=== PATIENT | male | born 1940 | race Caucasian/White ===

== ENCOUNTER → 2016-04-28 | Outpatient (RCR) ==
--- NOTE | 2016-04-28 11:08 | RS.OTEVAL ---
Subjective Date of Note: 04/28/16 Visit #: 1 Date of Evaluation: 04/28/16 Date of Onset/Injury/Change in Status: 03/06/16 Surgery Performed?: Yes Date of Procedure: 04/14/16 Treatment Diagnosis: bicep Tenodesis Treatment Side (optional): Left *Precautions: No AROM of LEft elbow Prior Level of Function.....Patient was independent with: ADL's, Self Care, Work /Vocation, Caregiving, Ambulation/Mobility, Community Integration/Access History of Condition/Mechanism of Injury: Pt reported he fell over the dog barrier and went to catch himself when his LUE went behind him and it popped really loud and he had to lay in the floor until his got home. Level of Function: Pt requires assistance with putting on his shirt, tying his shoes Functional Limitations: Sleep, Self Care, ADL's, Reaching, Pushing, Pulling, Lifting, Carrying, Community Access/Integration Current Complaints/Gains: Pt has pain and very limited at this time. Pt requires assist with all ADLS. Pt is not to move the LUE Elbow actively. Medical History Medical History Comments:: Left bicep tenodesis, Tear of subscapularis muscles Surgical History Comments:: Left bicep tenodesis Smoking Status: Former smoker Patient's Goals: To get where he can use his LUE again. Pain Assessment - Pain Description Pain Description: Tightness, Sharp, Aching Pain Location: Left pectoralis muscle, subscapularis muscle and posterior scapula Pain Description: aches, sharp Current Pain Intensity: 7 Worst Pain Intensity: 9 Functional Outcome Measures UE Functional Index: 37 - G Codes & Severity Modifier G Codes: Carrying , Moving and handling objects. current CK. Goal CH Source of G Code score: Carrying moving and handling objects Observation - Observation Posture: Normal Handedness: Right Shoulder ROM: Right WFL's Shoulder Muscle Strength: Right WFL's - Left Shoulder ROM Left Shoulder Flexion: 90 (PROM) Left Shoulder Abduction: 40 (PROM) Left Shoulder Internal Rotation: 35 (PROM with pain) Left Shoulder External Rotation: 35 (PROM with pain) Left Shoulder ROM Limitations: Soft Tissue Tightness, Muscle Weakness, Pain Elbow ROM: Right WFL's Elbow Muscle Strength: Right WFL's - Right Elbow Strength Right Elbow Extension: 4+ Good + Right Elbow Flexion: 4+ Good + Right Forearm Pronation: 4+ Good + Right Forearm Supination: 4+ Good + Wrist ROM: Right WFL's Wrist Muscle Strength: Right WFL's Sensation Right Upper Extremity: Intact/Normal Left Upper Extremity: Intact/Normal Interventions - Exercise/Activities Exercise/Activities/Manual Therapy: PROM of JOSHE shoulder in shoulder flexion, Internal Rotation, External Rotation, ABDuction, ELBow flexion/extension HOME EXERCISE PROGRAM: Ice - Charges Total Direct Minutes: 45 Total Treatment Time: 15 Procedures billed for this date of service:: Dc moderate Assessment Assessment: Pt requires assist with all ADLS. Patient Education: Education of diagnosis, Home Exercise Program, Education of Plan of Care Rehab Potential: Good Short Term Goals Goal #1: Pt to follow the protocol for Bicep tenodesis. Goal to be met by: 05/12/16 Goal #2: Pt to be independent with Home exercise program. Goal to be met by: 05/12/16 Goal #3: Pt pain to decrease to 4/10 Goal to be met by: 05/12/16 Goal #4: Pt to increase to full PROM in week 1-4 Goal to be met by: 05/12/16 Prison Goals Goal #1: Pt to be independent with HEP. Goal to be met by: 07/21/16 Goal #2: Pt to have full AROM at 8th week. Goal to be met by: 07/21/16 Goal #3: Pt pain to decrease to 0-1/10 Goal to be met by: 07/21/16 Goal #4: Pt to increase strength to 4+/5 Goal to be met by: 07/21/16 Plan - Treatment to be provided Procedures: Therapeutic Exercises, Therapeutic Activity, Neuromuscular Rehab, Manual Therapy, Patient Education Modalities: Ultrasound/Phonophoresis, Class IV Laser, Cryotherapy, Hot Packs - Treatment Plan Frequency: 3 X week Duration: 12 weeks ORDER # VISITS AND/OR THROUGH DATE: July 21, 2016
== END ==
PROVIDERS: ATTEND Orthopaedic Surgery
DX: S46.012D Strain of muscle(s) and tendon(s) of the rotator cuff of left shoulder, subsequent encounter (principal)

== ENCOUNTER → 2016-05-29 | Outpatient (RCR) ==
--- NOTE | 2016-04-29 13:21 | RS.OTDNOTE ---
Subjective Date of Note: 04/29/16 Visit #: 2 Date of Evaluation: 04/28/16 Date of Onset/Injury/Change in Status: 03/06/16 Surgery Performed?: Yes Treatment Diagnosis: bicep Tenodesis Treatment Side (optional): Left *Precautions: No AROM of LEft elbow Prior Level of Function.....Patient was independent with: ADL's, Self Care, Work /Vocation, Caregiving, Ambulation/Mobility, Community Integration/Access History of Condition/Mechanism of Injury: Pt reported he fell over the dog barrier and went to catch himself when his LUE went behind him and it popped really loud and he had to lay in the floor until his got home. Level of Function: Pt requires assistance with putting on his shirt, tying his shoes Functional Limitations: Sleep, Self Care, ADL's, Reaching, Pushing, Pulling, Lifting, Carrying, Community Access/Integration Current Complaints/Gains: Pt states hx of fall and states he is fearful of injuring UE or "pulling something out." States good compliance with donning brace and that he has trouble not utilizing his (L) hand at times "but the sling stops me". Pain Assessment - Pain Description Pain Description: Tightness, Radiating, Sharp, Throbbing, Aching Pain Location: Left pectoralis muscle, subscapularis muscle and posterior scapula Pain Description: aches, sharp Current Pain Intensity: 4 Worst Pain Intensity: 8+ Modalities - Treatment Modality: Ultrasound Parameters/Method Applied: 1.5w/cm2 x 7 mins each to elbow and to bicep tendon area. Patient Position: Supine - Hot Pack/Cryotherapy Treatment: Hot Pack (HP applied to shoulder and elbow prior to US/PROM x 15 mins with CP applied x 10+ mins following PROM), Cryotherapy Interventions - Exercise/Activities Exercise/Activities/Manual Therapy: PROM of LUE shoulder in shoulder flexion/ scaption, IR/ER, ABDuction, and elbow flexion/extension. PROM elbow extension to 0* HOME EXERCISE PROGRAM: Ice - Other Treatment/Services Treatment Details: Pt guarded during PROM, hard to relax. - Objective Findings Objective Findings:: Manual therapy/trigger point therapy performed - Charges Total Direct Minutes: 41 Total Treatment Time: 56 Procedures billed for this date of service:: HP/CP EX US Assessment Patient Education: Education of diagnosis, Body/Joint mechanics, Home Exercise Program, Home Safety, Activity Modification, Education of Plan of Care Patient demonstrates compliance with HEP?: Yes Short Term Goals Goal #1: Pt to follow the protocol for Bicep tenodesis. Goal to be met by: 05/12/16 Progress towards goal: Progressing Goal #2: Pt to be independent with Home exercise program. Goal to be met by: 05/12/16 Progress towards goal: Progressing Goal #3: Pt pain to decrease to 4/10 Goal to be met by: 05/12/16 Progress towards goal: Progressing Goal #4: Pt to increase to full PROM in week 1-4 Goal to be met by: 05/12/16 Progress towards goal: Progressing Senior Care Goals Goal #1: Pt to be independent with HEP. Goal to be met by: 07/21/16 Progress towards goal: Progressing Goal #2: Pt to have full AROM at 8th week. Goal to be met by: 07/21/16 Progress towards goal: No Change Goal #3: Pt pain to decrease to 0-1/10 Goal to be met by: 07/21/16 Progress towards goal: Progressing Goal #4: Pt to increase strength to 4+/5 Goal to be met by: 07/21/16 Progress towards goal: No Change (PROM only till May 19) Plan PLAN OF CARE EXPIRES ON:: 07/21/16 ORDER # VISITS AND/OR THROUGH DATE: July 21, 2016 PLAN: Continue Plan of Care Frequency: 3 X week Duration: 12 weeks
--- NOTE | 2016-04-30 10:17 | RS.OTDNOTE ---
Subjective Date of Note: 04/30/16 Visit #: 3 Date of Evaluation: 04/28/16 Date of Onset/Injury/Change in Status: 03/06/16 Surgery Performed?: Yes Treatment Diagnosis: bicep Tenodesis Treatment Side (optional): Left *Precautions: No AROM of LEft elbow Prior Level of Function.....Patient was independent with: ADL's, Self Care, Work /Vocation, Caregiving, Ambulation/Mobility, Community Integration/Access History of Condition/Mechanism of Injury: Pt reported he fell over the dog barrier and went to catch himself when his LUE went behind him and it popped really loud and he had to lay in the floor until his got home. Level of Function: Pt requires assistance with putting on his shirt, tying his shoes Functional Limitations: Sleep, Self Care, ADL's, Reaching, Pushing, Pulling, Lifting, Carrying, Community Access/Integration Current Complaints/Gains: Pt reports he did not apply ice pack again yesterday as instructed but that he did soak in a warm bathtub to decrease c/o pain. States he only took one wk off of work and realizes now that he should have taken more time off. Pain Assessment - Pain Description Pain Description: Tightness, Radiating, Sharp, Throbbing, Aching Pain Location: Left pectoralis muscle, subscapularis muscle and posterior scapula Pain Description: aches, sharp Modalities - Treatment Modality: Ultrasound Parameters/Method Applied: 1.5w/cm2 x 7 mins along bicep tendon and x 7 mins anterior/posterior shoulder. Patient Position: Sitting - Hot Pack/Cryotherapy Treatment: Hot Pack, Cryotherapy (HP x 15+ mins prior to PROM with CP applied x 10+ mins following with pt instructed to apply CP x 10-15 2-3 times daily for pain axel) Interventions - Exercise/Activities Exercise/Activities/Manual Therapy: PROM of LUE shoulder with pt in supine and sidelying position shoulder flexion/scaption, IR/ER, ABDuction, and elbow flexion/extension (GE/AG). PROM elbow extension to 0* HOME EXERCISE PROGRAM: Ice and no AROM including hand - Objective Findings Objective Findings:: Manual therapy/trigger point therapy performed - Charges Total Direct Minutes: 40 Total Treatment Time: 65 Procedures billed for this date of service:: HP/CP US EX Assessment Patient Education: Education of diagnosis, Body/Joint mechanics, Home Exercise Program, Home Safety, Activity Modification, Education of Plan of Care Patient demonstrates compliance with HEP?: Yes Short Term Goals Goal #1: Pt to follow the protocol for Bicep tenodesis. Goal to be met by: 05/12/16 Progress towards goal: Progressing Goal #2: Pt to be independent with Home exercise program. Goal to be met by: 05/12/16 Progress towards goal: Progressing Goal #3: Pt pain to decrease to 4/10 Goal to be met by: 05/12/16 Progress towards goal: Progressing Goal #4: Pt to increase to full PROM in week 1-4 Goal to be met by: 05/12/16 Progress towards goal: Progressing Accounts Officer Goals Goal #1: Pt to be independent with HEP. Goal to be met by: 07/21/16 Progress towards goal: Progressing Goal #2: Pt to have full AROM at 8th week. Goal to be met by: 07/21/16 Progress towards goal: No Change Goal #3: Pt pain to decrease to 0-1/10 Goal to be met by: 07/21/16 Progress towards goal: Progressing Goal #4: Pt to increase strength to 4+/5 Goal to be met by: 07/21/16 Progress towards goal: No Change (PROM only till May 19) Plan PLAN OF CARE EXPIRES ON:: 07/21/16 ORDER # VISITS AND/OR THROUGH DATE: July 21, 2016 PLAN: Continue Plan of Care Frequency: 3 X week Duration: 12 weeks
--- NOTE | 2016-05-04 13:59 | RS.OTDNOTE ---
Subjective Date of Note: 05/04/16 Visit #: 4 Date of Evaluation: 04/28/16 Date of Onset/Injury/Change in Status: 03/06/16 Surgery Performed?: Yes Treatment Diagnosis: bicep Tenodesis Treatment Side (optional): Left *Precautions: No AROM of LEft elbow Prior Level of Function.....Patient was independent with: ADL's, Self Care, Work /Vocation, Caregiving, Ambulation/Mobility, Community Integration/Access History of Condition/Mechanism of Injury: Pt reported he fell over the dog barrier and went to catch himself when his LUE went behind him and it popped really loud and he had to lay in the floor until his got home. Level of Function: Pt requires assistance with putting on his shirt, tying his shoes Functional Limitations: Sleep, Self Care, ADL's, Reaching, Pushing, Pulling, Lifting, Carrying, Community Access/Integration Current Complaints/Gains: Pt states he has been doing too much. States he has not applied an ice pack over the wknd 2* his freezer going out. States pain at 6-09/07 with taking pain medicine prior to therapy. Pain Assessment - Pain Description Pain Description: Tightness, Radiating, Sharp, Throbbing, Aching Pain Location: Left pectoralis muscle, subscapularis muscle and posterior scapula Pain Description: aches, sharp Current Pain Intensity: 6 Worst Pain Intensity: 7 Modalities - Treatment Modality: Ultrasound Parameters/Method Applied: 1.5w/cm2 x 10 mins Treatment Area: anterior shoulder and along bicep tendon - Hot Pack/Cryotherapy Treatment: Hot Pack, Cryotherapy Interventions - Exercise/Activities Exercise/Activities/Manual Therapy: PROM of LUE shoulder with pt in supine and sidelying position shoulder flexion/scaption, IR/ER, ABDuction, and elbow flexion/extension (GE/AG). PROM elbow extension to 0*. Manual therapy/trigger point therapy to posterior scapula and along bicep tendon. HOME EXERCISE PROGRAM: Ice and no AROM including hand - Objective Findings Objective Findings:: Manual therapy/trigger point therapy performed - Charges Total Direct Minutes: 50 Total Treatment Time: 70 Procedures billed for this date of service:: CP US MT EX Assessment Patient Education: Education of diagnosis, Body/Joint mechanics, Home Exercise Program, Home Safety, Activity Modification, Education of Plan of Care Patient demonstrates compliance with HEP?: Yes Short Term Goals Goal #1: Pt to follow the protocol for Bicep tenodesis. Goal to be met by: 05/12/16 Progress towards goal: Progressing Goal #2: Pt to be independent with Home exercise program. Goal to be met by: 05/12/16 Progress towards goal: Progressing Goal #3: Pt pain to decrease to 4/10 Goal to be met by: 05/12/16 Progress towards goal: Progressing Goal #4: Pt to increase to full PROM in week 1-4 Goal to be met by: 05/12/16 Progress towards goal: Progressing Pitch Gatherer Goals Goal #1: Pt to be independent with HEP. Goal to be met by: 07/21/16 Progress towards goal: Progressing Goal #2: Pt to have full AROM at 8th week. Goal to be met by: 07/21/16 Progress towards goal: No Change Goal #3: Pt pain to decrease to 0-1/10 Goal to be met by: 07/21/16 Progress towards goal: Progressing Goal #4: Pt to increase strength to 4+/5 Goal to be met by: 07/21/16 Progress towards goal: No Change (PROM only till May 19) Plan PLAN OF CARE EXPIRES ON:: 07/21/16 ORDER # VISITS AND/OR THROUGH DATE: July 21, 2016 PLAN: Continue Plan of Care Frequency: 3 X week Duration: 6 weeks
--- NOTE | 2016-05-06 13:44 | RS.OTDNOTE ---
Subjective Date of Note: 05/06/16 Visit #: 5 Date of Evaluation: 04/28/16 Date of Onset/Injury/Change in Status: 03/06/16 Surgery Performed?: Yes Treatment Diagnosis: bicep Tenodesis Treatment Side (optional): Left *Precautions: No AROM of LEft elbow Prior Level of Function.....Patient was independent with: ADL's, Self Care, Work /Vocation, Caregiving, Ambulation/Mobility, Community Integration/Access History of Condition/Mechanism of Injury: Pt reported he fell over the dog barrier and went to catch himself when his LUE went behind him and it popped really loud and he had to lay in the floor until his got home. Level of Function: Pt requires assistance with putting on his shirt, tying his shoes Functional Limitations: Sleep, Self Care, ADL's, Reaching, Pushing, Pulling, Lifting, Carrying, Community Access/Integration Current Complaints/Gains: Pt states he takes one pain med (lortab3.5) in am but then only takes tylenol or ibuprofen during the rest of the day. States he does not want to get addicted to pain medicine. States pain range from 0/10 to 2/10 daily that increases to 6-7/10 with PROM and decreases to 4/10 with CP. Pt voices the most c/o pain with shoulder flexion PROM and has no/little increase of pain with abd or extension. Pain Assessment - Pain Description Pain Description: Tightness, Radiating, Sharp, Throbbing, Aching Pain Location: Left pectoralis muscle, subscapularis muscle and posterior scapula Pain Description: aches, sharp Current Pain Intensity: 4 Worst Pain Intensity: 6-7 Modalities - Treatment Modality: Ultrasound Parameters/Method Applied: 1.5w/cm2 x 10 mins Treatment Area: bicep tendon and anterior shoulder Patient Position: Sitting - Hot Pack/Cryotherapy Treatment: Hot Pack, Cryotherapy Interventions - Exercise/Activities Exercise/Activities/Manual Therapy: PROM of LUE shoulder with pt in supine and sidelying position shoulder flexion/scaption, IR/ER, ABDuction, and elbow flexion/extension (GE/AG). PROM elbow extension to 0*. Manual therapy/trigger point therapy to posterior scapula and along bicep tendon. Wrist PROM also performed for flex/extension and pro/supination. HOME EXERCISE PROGRAM: Ice and no AROM including hand - Objective Findings Objective Findings:: Manual therapy/trigger point therapy performed - Charges Total Direct Minutes: 55 Total Treatment Time: 75 Procedures billed for this date of service:: CP US EX2 Assessment Patient Education: Education of diagnosis, Body/Joint mechanics, Home Safety, Activity Modification, Education of Plan of Care Patient demonstrates compliance with HEP?: Yes Short Term Goals Goal #1: Pt to follow the protocol for Bicep tenodesis. Goal to be met by: 05/12/16 Progress towards goal: Partially Met Goal #2: Pt to be independent with Home exercise program. Goal to be met by: 05/12/16 Progress towards goal: Progressing Goal #3: Pt pain to decrease to 4/10 Goal to be met by: 05/12/16 Progress towards goal: Progressing Goal #4: Pt to increase to full PROM in week 1-4 Goal to be met by: 05/12/16 Progress towards goal: Progressing [facility] Goals Goal #1: Pt to be independent with HEP. Goal to be met by: 07/21/16 Progress towards goal: Progressing Goal #2: Pt to have full AROM at 8th week. Goal to be met by: 07/21/16 Progress towards goal: No Change Goal #3: Pt pain to decrease to 0-1/10 Goal to be met by: 07/21/16 Progress towards goal: Progressing Goal #4: Pt to increase strength to 4+/5 Goal to be met by: 07/21/16 Progress towards goal: No Change (PROM only till May 19) Plan PLAN OF CARE EXPIRES ON:: 07/21/16 ORDER # VISITS AND/OR THROUGH DATE: July 21, 2016 PLAN: Continue Plan of Care Frequency: 3 X week Duration: 4 weeks
--- NOTE | 2016-05-08 10:24 | RS.OTDNOTE ---
Subjective Date of Note: 05/08/16 Visit #: 6 Date of Evaluation: 04/28/16 Date of Onset/Injury/Change in Status: 03/06/16 Surgery Performed?: Yes Treatment Diagnosis: bicep Tenodesis Treatment Side (optional): Left *Precautions: No AROM of LEft elbow Prior Level of Function.....Patient was independent with: ADL's, Self Care, Work /Vocation, Caregiving, Ambulation/Mobility, Community Integration/Access History of Condition/Mechanism of Injury: Pt reported he fell over the dog barrier and went to catch himself when his LUE went behind him and it popped really loud and he had to lay in the floor until his got home. Level of Function: Pt requires assistance with putting on his shirt, tying his shoes Functional Limitations: Sleep, Self Care, ADL's, Reaching, Pushing, Pulling, Lifting, Carrying, Community Access/Integration Current Complaints/Gains: Pt states he slept better last night and that he positioned a pillow with his UE/splint for increased comfort. States he took his pain med's at 6am this morning and is advised to try taking closer for therapy time next wk. Pain Assessment - Pain Description Pain Description: Tightness, Radiating, Sharp, Throbbing, Aching Pain Location: Left pectoralis muscle, subscapularis muscle and posterior scapula Pain Description: aches, sharp Modalities - Treatment Modality: Ultrasound Parameters/Method Applied: 1.5w/cm2 x 8 mins x 2 along bicep tendon and anterior shoulder Patient Position: Sitting - Hot Pack/Cryotherapy Treatment: Hot Pack, Cryotherapy Interventions - Exercise/Activities Exercise/Activities/Manual Therapy: PROM of LUE shoulder with pt in supine and sidelying position shoulder flexion/scaption, IR/ER, ABDuction, and elbow flexion/extension (GE/AG). PROM elbow extension to 0*. Manual therapy/trigger point therapy to posterior scapula and along bicep tendon. Wrist PROM also performed for flex/extension and pro/supination. Prolonged PROM x 30+ mins HOME EXERCISE PROGRAM: Ice and no AROM including hand - Objective Findings Objective Findings:: Manual therapy/trigger point therapy performed - Charges Total Direct Minutes: 50 Total Treatment Time: 65 Procedures billed for this date of service:: CP US EX2 Assessment Patient Education: Education of diagnosis, Body/Joint mechanics, Home Exercise Program, Home Safety, Activity Modification, Education of Plan of Care Patient demonstrates compliance with HEP?: Yes Short Term Goals Goal #1: Pt to follow the protocol for Bicep tenodesis. Goal to be met by: 05/12/16 Progress towards goal: Partially Met Goal #2: Pt to be independent with Home exercise program. Goal to be met by: 05/12/16 Progress towards goal: Partially Met Goal #3: Pt pain to decrease to 4/10 Goal to be met by: 05/12/16 Progress towards goal: Progressing Goal #4: Pt to increase to full PROM in week 1-4 Goal to be met by: 05/12/16 Progress towards goal: Progressing Devulcanizer Loader Goals Goal #1: Pt to be independent with HEP. Goal to be met by: 07/21/16 Progress towards goal: Progressing Goal #2: Pt to have full AROM at 8th week. Goal to be met by: 07/21/16 Progress towards goal: No Change Goal #3: Pt pain to decrease to 0-1/10 Goal to be met by: 07/21/16 Progress towards goal: Progressing Goal #4: Pt to increase strength to 4+/5 Goal to be met by: 07/21/16 Progress towards goal: No Change (PROM only till May 19) Plan PLAN OF CARE EXPIRES ON:: 07/21/16 ORDER # VISITS AND/OR THROUGH DATE: July 21, 2016 PLAN: Continue Plan of Care Frequency: 3 X week Duration: 4 weeks
--- NOTE | 2016-05-11 13:39 | RS.OTDNOTE ---
Subjective Date of Note: 05/11/16 Visit #: 7 Date of Evaluation: 04/28/16 Date of Onset/Injury/Change in Status: 03/06/16 Surgery Performed?: Yes Treatment Diagnosis: bicep Tenodesis Treatment Side (optional): Left *Precautions: No AROM of LEft elbow Prior Level of Function.....Patient was independent with: ADL's, Self Care, Work /Vocation, Caregiving, Ambulation/Mobility, Community Integration/Access History of Condition/Mechanism of Injury: Pt reported he fell over the dog barrier and went to catch himself when his LUE went behind him and it popped really loud and he had to lay in the floor until his got home. Level of Function: Pt requires assistance with putting on his shirt, tying his shoes Functional Limitations: Sleep, Self Care, ADL's, Reaching, Pushing, Pulling, Lifting, Carrying, Community Access/Integration Current Complaints/Gains: Pt states good compliance with applying CP over the wknd. States while asleep and dreaming that he woke while he involunterly "jerked arm" and had increase of pain following. States pain in posterior scapula down his deltoid with manual therapy/trigger point therapy. Pain Assessment - Pain Description Pain Description: Burning, Tightness, Radiating, Sharp, Throbbing, Aching Pain Location: Left pectoralis muscle, subscapularis muscle and posterior scapula Pain Description: aches, sharp Current Pain Intensity: 6-7 Worst Pain Intensity: 10 Modalities - Treatment Modality: Ultrasound Parameters/Method Applied: 1.5w/cm2 x 12 mins posterior shoulder and x 7 mins to deltoid region of UE Patient Position: Sitting - Hot Pack/Cryotherapy Treatment: Cryotherapy (x 15 mins following therapy) Interventions - Exercise/Activities Exercise/Activities/Manual Therapy: PROM of LUE shoulder with pt in supine and sidelying position shoulder flexion/scaption, IR/ER, ABDuction, and elbow flexion/extension (GE/AG). PROM elbow extension to 0*. Manual therapy/trigger point therapy to posterior scapula and along bicep tendon x 30+ mins with pt in sitting and sidelying positon and duirng shoulder PROM. Wrist PROM also performed for flex/extension and pro/supination. Prolonged PROM x 30+ mins HOME EXERCISE PROGRAM: Ice and no AROM including hand - Other Treatment/Services Treatment Details: OTR assessed pt progress - Objective Findings Objective Findings:: Manual therapy/trigger point therapy performed with pt ed on home program with aide of tennis ball and wall. - Charges Total Direct Minutes: 70 Total Treatment Time: 85 Procedures billed for this date of service:: EX MT2 US CP Assessment Patient Education: Education of diagnosis, Body/Joint mechanics, Home Exercise Program, Home Safety, Activity Modification, Education of Plan of Care Patient demonstrates compliance with HEP?: Yes Short Term Goals Goal #1: Pt to follow the protocol for Bicep tenodesis. Goal to be met by: 05/12/16 Progress towards goal: Partially Met Goal #2: Pt to be independent with Home exercise program. Goal to be met by: 05/12/16 Progress towards goal: Partially Met Goal #3: Pt pain to decrease to 4/10 Goal to be met by: 05/12/16 Progress towards goal: Progressing Goal #4: Pt to increase to full PROM in week 1-4 Goal to be met by: 05/12/16 Progress towards goal: Progressing [employer] Goals Goal #1: Pt to be independent with HEP. Goal to be met by: 07/21/16 Progress towards goal: Progressing Goal #2: Pt to have full AROM at 8th week. Goal to be met by: 07/21/16 Progress towards goal: No Change Goal #3: Pt pain to decrease to 0-1/10 Goal to be met by: 07/21/16 Progress towards goal: Progressing Goal #4: Pt to increase strength to 4+/5 Goal to be met by: 07/21/16 Progress towards goal: No Change (PROM only till May 19) Plan PLAN OF CARE EXPIRES ON:: 07/21/16 ORDER # VISITS AND/OR THROUGH DATE: July 21, 2016 PLAN: Continue Plan of Care Frequency: 3 X week Duration: 4 weeks
--- NOTE | 2016-05-13 14:22 | RS.OTDNOTE ---
Subjective Date of Note: 05/13/16 Visit #: 8 Date of Evaluation: 04/28/16 Date of Onset/Injury/Change in Status: 03/06/16 Surgery Performed?: Yes Treatment Diagnosis: bicep Tenodesis Treatment Side (optional): Left *Precautions: No AROM of LEft elbow Prior Level of Function.....Patient was independent with: ADL's, Self Care, Work /Vocation, Caregiving, Ambulation/Mobility, Community Integration/Access History of Condition/Mechanism of Injury: Pt reported he fell over the dog barrier and went to catch himself when his LUE went behind him and it popped really loud and he had to lay in the floor until his got home. Level of Function: Pt requires assistance with putting on his shirt, tying his shoes Functional Limitations: Sleep, Self Care, ADL's, Reaching, Pushing, Pulling, Lifting, Carrying, Community Access/Integration Current Complaints/Gains: Pt states he took a long hot bath to decrease pain in his shoulder and that it seemed to help. States he is out of his lortab and will not take his percocet 2* it making him feel ill. Pain Assessment - Pain Description Pain Description: Burning, Tightness, Radiating, Sharp, Throbbing, Aching Pain Location: Left pectoralis muscle, subscapularis muscle and posterior scapula Pain Description: aches, sharp Current Pain Intensity: 4 Worst Pain Intensity: 8 Modalities - Treatment Modality: Ultrasound Parameters/Method Applied: 1.5w/cm2 x 12 mins Treatment Area: shoulder/scapula Patient Position: Sitting - Treatment Modality: Class 4 Laser Parameters/Method Applied: Acute pain protocol x 2 sessions. 0 charge Treatment Area: shoulder Patient Position: Right Sidelying - Hot Pack/Cryotherapy Treatment: Cryotherapy (x 15 mins following PROM prior to laser with pt ed to not apply CP x 3-4 hrs following) Interventions - Exercise/Activities Exercise/Activities/Manual Therapy: PROM of LUE shoulder with pt in supine and sidelying position shoulder flexion/scaption, IR/ER, ABDuction, and elbow flexion/extension (GE/AG). PROM elbow extension to 0*. Manual therapy/trigger point therapy to posterior scapula and along bicep tendon x 30+ mins with pt in sitting and sidelying positon and duirng shoulder PROM. Wrist PROM also performed for flex/extension and pro/supination. Prolonged PROM x 20+ mins HOME EXERCISE PROGRAM: Ice and no AROM including hand - Objective Findings Objective Findings:: Manual therapy/trigger point therapy performed with pt ed on home program with aide of tennis ball and wall. - Charges Total Direct Minutes: 75 Total Treatment Time: 90 Procedures billed for this date of service:: CP US EX MT2 (no charge laser) Assessment Patient Education: Education of diagnosis, Body/Joint mechanics, Home Exercise Program, Home Safety, Activity Modification, Education of Plan of Care Patient demonstrates compliance with HEP?: Yes Short Term Goals Goal #1: Pt to follow the protocol for Bicep tenodesis. Goal to be met by: 05/12/16 Progress towards goal: Partially Met Goal #2: Pt to be independent with Home exercise program. Goal to be met by: 05/12/16 Progress towards goal: Partially Met Goal #3: Pt pain to decrease to 4/10 Goal to be met by: 05/12/16 Progress towards goal: Progressing Goal #4: Pt to increase to full PROM in week 1-4 Goal to be met by: 05/12/16 Progress towards goal: Progressing [employer] Goals Goal #1: Pt to be independent with HEP. Goal to be met by: 07/21/16 Progress towards goal: Progressing Goal #2: Pt to have full AROM at 8th week. Goal to be met by: 07/21/16 Progress towards goal: No Change Goal #3: Pt pain to decrease to 0-1/10 Goal to be met by: 07/21/16 Progress towards goal: Progressing Goal #4: Pt to increase strength to 4+/5 Goal to be met by: 07/21/16 Progress towards goal: No Change (PROM only till May 19) Plan PLAN OF CARE EXPIRES ON:: 07/21/16 ORDER # VISITS AND/OR THROUGH DATE: July 21, 2016 PLAN: Continue Plan of Care Frequency: 3 X week Duration: 4 weeks
--- NOTE | 2016-05-15 11:18 | RS.OTDNOTE ---
Subjective Date of Note: 05/15/16 Visit #: 9 Date of Evaluation: 04/28/16 Date of Onset/Injury/Change in Status: 03/06/16 Surgery Performed?: Yes Treatment Diagnosis: bicep Tenodesis Treatment Side (optional): Left *Precautions: No AROM of LEft elbow Prior Level of Function.....Patient was independent with: ADL's, Self Care, Work /Vocation, Caregiving, Ambulation/Mobility, Community Integration/Access History of Condition/Mechanism of Injury: Pt reported he fell over the dog barrier and went to catch himself when his LUE went behind him and it popped really loud and he had to lay in the floor until his got home. Level of Function: Pt requires assistance with putting on his shirt, tying his shoes Functional Limitations: Sleep, Self Care, ADL's, Reaching, Pushing, Pulling, Lifting, Carrying, Community Access/Integration Current Complaints/Gains: Pt states he contacted his MD and now has a lortab rx of 3.5. States he is starting to feel his arm is moving in the right direction and pain is decreased. States good compliance with applying CP the past 2 days and states he will perform over the wknd. Pain Assessment - Pain Description Pain Description: Burning, Tightness, Radiating, Sharp, Throbbing, Aching Pain Location: Left pectoralis muscle, subscapularis muscle and posterior scapula Pain Description: aches, sharp Current Pain Intensity: 3 Worst Pain Intensity: 6 Modalities - Treatment Modality: Ultrasound Parameters/Method Applied: 1.5w/cm2 x 12 mins Treatment Area: posterior/anterior shoulder and bicep tendon area - Hot Pack/Cryotherapy Treatment: Hot Pack, Cryotherapy Interventions - Exercise/Activities Exercise/Activities/Manual Therapy: PROM of LUE shoulder with pt in supine and sidelying position shoulder flexion/scaption, IR/ER, ABDuction, and elbow flexion/extension (GE/AG). PROM elbow extension to 0*. Manual therapy/trigger point therapy to posterior scapula and along bicep tendon x 20+ mins with pt in sitting and sidelying positon and during shoulder PROM. Wrist PROM also performed for flex/extension and pro/supination. HOME EXERCISE PROGRAM: Ice and no AROM including hand - Objective Findings Objective Findings:: Manual therapy/trigger point therapy performed with pt ed on home program with aide of tennis ball and wall. - Charges Total Direct Minutes: 60 Total Treatment Time: 75 Procedures billed for this date of service:: CP US MT EX Assessment Patient Education: Education of diagnosis, Body/Joint mechanics, Home Exercise Program, Home Safety, Activity Modification, Education of Plan of Care Patient demonstrates compliance with HEP?: Yes Short Term Goals Goal #1: Pt to follow the protocol for Bicep tenodesis. Goal to be met by: 05/12/16 Progress towards goal: Partially Met Goal #2: Pt to be independent with Home exercise program. Goal to be met by: 05/12/16 Progress towards goal: Partially Met Goal #3: Pt pain to decrease to 4/10 Goal to be met by: 05/12/16 Progress towards goal: Partially Met Goal #4: Pt to increase to full PROM in week 1-4 Goal to be met by: 05/12/16 Progress towards goal: Progressing Jail Goals Goal #1: Pt to be independent with HEP. Goal to be met by: 07/21/16 Progress towards goal: Progressing Goal #2: Pt to have full AROM at 8th week. Goal to be met by: 07/21/16 Progress towards goal: No Change Goal #3: Pt pain to decrease to 0-1/10 Goal to be met by: 07/21/16 Progress towards goal: Progressing Goal #4: Pt to increase strength to 4+/5 Goal to be met by: 07/21/16 Progress towards goal: No Change (PROM only till May 19) Plan PLAN OF CARE EXPIRES ON:: 07/21/16 ORDER # VISITS AND/OR THROUGH DATE: July 21, 2016 PLAN: Continue Plan of Care Frequency: 3 X week Duration: 4 weeks
--- NOTE | 2016-05-19 11:05 | RS.OTPN ---
Subjective Date of Note: 05/19/16 Visit #: 10 Date of Evaluation: 04/28/16 Payer Source: MEDICARE Date of Onset/Injury/Change in Status: 03/06/16 Surgery Performed?: Yes Date of Procedure: 04/14/16 Treatment Diagnosis: bicep Tenodesis Treatment Side (optional): Left *Precautions: AROM of LEft elbow and shoulder, NO resistance. Prior Level of Function.....Patient was independent with: ADL's, Self Care, Work /Vocation, Caregiving, Ambulation/Mobility, Community Integration/Access History of Condition/Mechanism of Injury: Pt reported he fell over the dog barrier and went to catch himself when his LUE went behind him and it popped really loud and he had to lay in the floor until his got home. Level of Function: Pt requires assistance with putting on his shirt, tying his shoes Functional Limitations: Sleep, Self Care, ADL's, Reaching, Pushing, Pulling, Lifting, Carrying, Community Access/Integration Current Complaints/Gains: Pain in back of arm to elbow with LUE elbow extension. Pt has pain in the anterior aspect of LUE shoulder. Complains of LUE shoulder pain with external rotation. Pain Assessment - Pain Description Pain Description: Burning, Tightness, Radiating, Sharp, Throbbing, Aching Pain Location: Left pectoralis muscle, subscapularis muscle and posterior scapula, posterior elbow and tricep. Pain Description: aches, sharp Current Pain Intensity: 7 Worst Pain Intensity: 9 Functional Outcome Measures UE Functional Index: 46 - G Codes & Severity Modifier G Codes: Current is CK in Carry Moving and Handling. Goal CH Source of G Code score: Carrying, moving, and handling Observation - Observation Posture: Forward Head, Rounded Shoulders Handedness: Right Shoulder ROM: Right WFL's Shoulder Muscle Strength: Right WFL's - Left Shoulder ROM Left Shoulder Flexion: 90 Left Shoulder Extension: 48 Left Shoulder Abduction: 50 Left Shoulder Internal Rotation: 70 Left Shoulder External Rotation: 70 Left Shoulder ROM Limitations: Soft Tissue Tightness, Muscle Weakness, Pain Comments: Manual musle not tested due to no resistance precaution at this time. Elbow ROM: Right WFL's Elbow Muscle Strength: Right WFL's - Left Elbow ROM Left Elbow Extension: 0 Left Elbow Flexion: 130 Left Elbow Supination: 80 Left Elbow Pronation: 70 Left Elbow ROM Limitations: Soft Tissue Tightness, Muscle Weakness, Pain - Right Elbow Strength Right Elbow Extension: 4+ Good + Right Elbow Flexion: 4+ Good + Right Forearm Pronation: 4+ Good + Right Forearm Supination: 4+ Good + Wrist ROM: Bilaterally WFL's Wrist Muscle Strength: Bilaterally WFL's - Left Wrist/Hand ROM Left Wrist Extension: wfl Left Forearm Pronation: 70 Left Forearm Supination: 80 Left Wrist ROM Testing Limitations: Muscle Weakness, Pain Palpation Palpation Findings: Tenderness, Trigger Point, Muscle Guarding Sensation Right Upper Extremity: Intact/Normal Left Upper Extremity: Intact/Normal Modalities - Hot Pack/Cryotherapy Treatment: Cryotherapy Comments:: side lying for LUE shoulder Interventions - Exercise/Activities Exercise/Activities/Manual Therapy: PROM of LUE shoulder with pt in supine and sidelying position shoulder flexion/scaption, IR/ER, ABDuction, and elbow flexion/extension (GE/AG). PROM elbow extension to 0*. Manual therapy/trigger point therapy to posterior scapula and along bicep tendon x 20+ mins with pt in sitting and sidelying positon and during shoulder PROM. Wrist PROM also performed for flex/extension and pro/supination. HOME EXERCISE PROGRAM: Ice and no AROM including hand - Objective Findings Objective Findings:: Manual therapy/trigger point therapy performed with pt ed on home program with aide of tennis ball and wall. - Charges Total Direct Minutes: 60 Total Treatment Time: 60 Procedures billed for this date of service:: MT, EX x3, CP Assessment Assessment: Pt is complaining of pain more at the beginning of the assessment for the progress note. Patient Education: Education of diagnosis, Home Exercise Program, Education of Plan of Care Rehab Potential: Good Short Term Goals Goal #1: Pt to follow the protocol for Bicep tenodesis. Goal to be met by: 06/02/16 Progress towards goal: Partially Met Goal #2: Pt to be independent with Home exercise program. Goal to be met by: 06/02/16 Progress towards goal: Partially Met Goal #3: Pt pain to decrease to 4/10 Goal to be met by: 06/02/16 Progress towards goal: Partially Met Goal #4: Pt to increase to full PROM in week 1-4 Goal to be met by: 06/02/16 Progress towards goal: Progressing Longterm Goals Goal #1: Pt to be independent with HEP. Goal to be met by: 07/21/16 Progress towards goal: Progressing Goal #2: Pt to have full AROM at 8th week. Goal to be met by: 07/21/16 Progress towards goal: No Change Goal #3: Pt pain to decrease to 0-1/10 Goal to be met by: 07/21/16 Progress towards goal: Progressing Goal #4: Pt to increase strength to 4+/5 Goal to be met by: 07/21/16 Progress towards goal: No Change (PROM only till May 19) Plan PLAN OF CARE EXPIRES ON:: 07/21/16 ORDER # VISITS AND/OR THROUGH DATE: July 21, 2016 Frequency: 3 X week Duration: 10 weeks
--- NOTE | 2016-05-20 13:54 | RS.OTDNOTE ---
Subjective Date of Note: 05/20/16 Visit #: 11 Date of Evaluation: 04/28/16 Payer Source: MEDICARE Date of Onset/Injury/Change in Status: 03/06/16 Surgery Performed?: Yes Date of Procedure: 04/14/16 Treatment Diagnosis: bicep Tenodesis Treatment Side (optional): Left *Precautions: AROM of LEft elbow and shoulder, NO resistance. Prior Level of Function.....Patient was independent with: ADL's, Self Care, Work /Vocation, Caregiving, Ambulation/Mobility, Community Integration/Access History of Condition/Mechanism of Injury: Pt reported he fell over the dog barrier and went to catch himself when his LUE went behind him and it popped really loud and he had to lay in the floor until his got home. Level of Function: Pt requires assistance with putting on his shirt, tying his shoes Functional Limitations: Sleep, Self Care, ADL's, Reaching, Pushing, Pulling, Lifting, Carrying, Community Access/Integration Current Complaints/Gains: Pt states he has not taken a lortab x 2 days but takes one during CP application following therapy. States pain is bad enough to make him sick at him stomach during exercise. Pain Assessment - Pain Description Pain Description: Burning, Tightness, Radiating, Sharp, Throbbing, Aching Pain Location: Left pectoralis muscle, subscapularis muscle and posterior scapula, posterior elbow and tricep. Pain Description: aches, sharp Current Pain Intensity: 5 Worst Pain Intensity: 7 Other comments regarding pain:: Pt states pain was the worst with tabletop AROM of shoulder flexion Modalities - Treatment Modality: Ultrasound Parameters/Method Applied: 1.5wcm/2 x 12 mins to anterior shoulder and deltoid muscle - Hot Pack/Cryotherapy Treatment: Cryotherapy Interventions - Exercise/Activities Exercise/Activities/Manual Therapy: PROM of LUE shoulder with pt in supine and sidelying position shoulder flexion/scaption, IR/ER, ABDuction, and elbow flexion/extension (GE/AG). PROM elbow extension to 0*. Manual therapy/trigger point therapy to posterior scapula and along bicep tendon x 20+ mins with pt in sitting and sidelying positon and during shoulder PROM. Wrist AROM along with codman's performed. AROM table-top and supine cane A/AROM performed of sh flexion. HOME EXERCISE PROGRAM: Ice and no AROM including hand - Objective Findings Objective Findings:: Manual therapy/trigger point therapy performed with pt ed on home program with aide of tennis ball and wall. - Charges Total Direct Minutes: 50 Total Treatment Time: 60 Procedures billed for this date of service:: CP US MT EX Assessment Patient Education: Education of diagnosis, Body/Joint mechanics, Home Exercise Program, Home Safety, Activity Modification, Education of Plan of Care Problems/Comments: MD office contacted reguarding use of UE sling. Pt instructed to continue sling usage until follow up visit this next wk. Short Term Goals Goal #1: Pt to follow the protocol for Bicep tenodesis. Goal to be met by: 06/02/16 Progress towards goal: Partially Met Goal #2: Pt to be independent with Home exercise program. Goal to be met by: 06/02/16 Progress towards goal: Partially Met Goal #3: Pt pain to decrease to 4/10 Goal to be met by: 06/02/16 Progress towards goal: Partially Met Goal #4: Pt to increase to full PROM in week 1-4 Goal to be met by: 06/02/16 Progress towards goal: Progressing Jail Goals Goal #1: Pt to be independent with HEP. Goal to be met by: 07/21/16 Progress towards goal: Progressing Goal #2: Pt to have full AROM at 8th week. Goal to be met by: 07/21/16 Progress towards goal: No Change Goal #3: Pt pain to decrease to 0-1/10 Goal to be met by: 07/21/16 Progress towards goal: Progressing Goal #4: Pt to increase strength to 4+/5 Goal to be met by: 07/21/16 Progress towards goal: No Change (PROM only till May 19) Plan PLAN OF CARE EXPIRES ON:: 07/21/16 ORDER # VISITS AND/OR THROUGH DATE: July 21, 2016 PLAN: Continue Plan of Care Frequency: 3 X week Duration: 4 weeks
--- NOTE | 2016-05-22 13:39 | RS.OTDNOTE ---
Subjective Date of Note: 05/22/16 Visit #: 12 Date of Evaluation: 04/28/16 Payer Source: MEDICARE Date of Onset/Injury/Change in Status: 03/06/16 Surgery Performed?: Yes Date of Procedure: 04/14/16 Treatment Diagnosis: bicep Tenodesis Treatment Side (optional): Left *Precautions: AROM of LEft elbow and shoulder, NO resistance. Prior Level of Function.....Patient was independent with: ADL's, Self Care, Work /Vocation, Caregiving, Ambulation/Mobility, Community Integration/Access History of Condition/Mechanism of Injury: Pt reported he fell over the dog barrier and went to catch himself when his LUE went behind him and it popped really loud and he had to lay in the floor until his got home. Level of Function: Pt requires assistance with putting on his shirt, tying his shoes Functional Limitations: Sleep, Self Care, ADL's, Reaching, Pushing, Pulling, Lifting, Carrying, Community Access/Integration Current Complaints/Gains: Pt states pain with PROM and palpation continues. Demo improved AROM of (L) UE. States good compliance with performing codman's ex. States he has briefly taken his brace off while at home but has donned brace with any outside or community activites. Pain Assessment - Pain Description Pain Description: Burning, Tightness, Radiating, Sharp, Throbbing, Aching Pain Location: Left pectoralis muscle, subscapularis muscle and posterior scapula, posterior elbow and tricep. Pain Description: aches, sharp Current Pain Intensity: 4 Worst Pain Intensity: 7-8 Modalities - Treatment Modality: Ultrasound Parameters/Method Applied: 1.5w/cm2 x 12 mins Treatment Area: anterior/posterior shoulder and along deltoid Patient Position: Sitting - Hot Pack/Cryotherapy Treatment: Cryotherapy (CP x 15 mins ) Interventions - Exercise/Activities Exercise/Activities/Manual Therapy: PROM of LUE shoulder with pt in supine and sidelying position shoulder flexion/scaption, IR/ER, ABDuction, and elbow flexion/extension (GE/AG). PROM elbow extension to 0*. Manual therapy/trigger point therapy to posterior scapula and along bicep tendon x 20+ mins with pt in sitting and sidelying positon and during shoulder PROM. Wrist AROM along with codman's performed. AROM table-top and supine cane A/AROM performed of sh flexion along with B UE aggie and finger ladder. Codmans ex and AROM/PROM shoulder with pt in prone position with trigger point therapy. Pt also performed 5/2 of shoulder flexion with hold/release performed in supine positon to 110-115*. HOME EXERCISE PROGRAM: Ice pack application, codman's ex, and AROM - Objective Findings Objective Findings:: AROM increasing with pt voicing decreased c/o pain. - Charges Total Direct Minutes: 60 Total Treatment Time: 75 Procedures billed for this date of service:: CP US EX2 MT Assessment Patient Education: Education of diagnosis, Body/Joint mechanics, Home Exercise Program, Home Safety, Activity Modification, Education of Plan of Care Patient demonstrates compliance with HEP?: Yes Short Term Goals Goal #1: Pt to follow the protocol for Bicep tenodesis. Goal to be met by: 06/02/16 Progress towards goal: Partially Met Goal #2: Pt to be independent with Home exercise program. Goal to be met by: 06/02/16 Progress towards goal: Partially Met Goal #3: Pt pain to decrease to 4/10 Goal to be met by: 06/02/16 Progress towards goal: Partially Met Goal #4: Pt to increase to full PROM in week 1-4 Goal to be met by: 06/02/16 Progress towards goal: Progressing Clinical Education Coordinator Goals Goal #1: Pt to be independent with HEP. Goal to be met by: 07/21/16 Progress towards goal: Progressing Goal #2: Pt to have full AROM at 8th week. Goal to be met by: 07/21/16 Progress towards goal: Progressing Goal #3: Pt pain to decrease to 0-1/10 Goal to be met by: 07/21/16 Progress towards goal: Progressing Goal #4: Pt to increase strength to 4+/5 Goal to be met by: 07/21/16 Progress towards goal: No Change (PROM only till May 19) Plan PLAN OF CARE EXPIRES ON:: 07/21/16 ORDER # VISITS AND/OR THROUGH DATE: July 21, 2016 PLAN: Continue Plan of Care Frequency: 3 X week Duration: 4 weeks
--- NOTE | 2016-05-25 15:17 | RS.OTDNOTE ---
Subjective Date of Note: 05/25/16 Visit #: 13 Date of Evaluation: 04/28/16 Payer Source: MEDICARE Date of Onset/Injury/Change in Status: 03/06/16 Surgery Performed?: Yes Date of Procedure: 04/14/16 Treatment Diagnosis: bicep Tenodesis Treatment Side (optional): Left *Precautions: AROM of LEft elbow and shoulder, NO resistance. Prior Level of Function.....Patient was independent with: ADL's, Self Care, Work /Vocation, Caregiving, Ambulation/Mobility, Community Integration/Access History of Condition/Mechanism of Injury: Pt reported he fell over the dog barrier and went to catch himself when his LUE went behind him and it popped really loud and he had to lay in the floor until his got home. Level of Function: Pt requires assistance with putting on his shirt, tying his shoes Functional Limitations: Sleep, Self Care, ADL's, Reaching, Pushing, Pulling, Lifting, Carrying, Community Access/Integration Current Complaints/Gains: Pt states he returned to MD this am. states his sling is DC'd and that his only precaution is not lifting anything with weight. States MD pleased with progress at this point. Pt also states he has made a B UE aggie at home for home use. Pain Assessment - Pain Description Pain Description: Burning, Tightness, Radiating, Sharp, Throbbing, Aching Pain Location: Left pectoralis muscle, subscapularis muscle and posterior scapula, posterior elbow and tricep. Pain Description: aches, sharp Modalities - Treatment Modality: Ultrasound Parameters/Method Applied: 1.5w/cm2 x 10 mins Treatment Area: shoulder Patient Position: Right Sidelying - Hot Pack/Cryotherapy Treatment: Cryotherapy Interventions - Exercise/Activities Exercise/Activities/Manual Therapy: PROM of LUE shoulder with pt in supine and sidelying position shoulder flexion/scaption, IR/ER, ABDuction, and elbow flexion/extension (GE/AG). PROM elbow extension to 0*. Manual therapy/trigger point therapy to posterior scapula and along bicep tendon x 20+ mins with pt in sitting and sidelying positon and during shoulder PROM. Wrist AROM along with codman's performed. AROM table-top and supine cane A/AROM performed of sh flexion along with B UE aggie and finger ladder. Codmans ex and AROM/PROM shoulder with pt in prone position with trigger point therapy. Pt also performed 10/1 of shoulder flexion/ext with hold/release performed in supine positon. Pt also performed and was ed for HEP of cane ex in supine and sitting position. HOME EXERCISE PROGRAM: Ice pack application, codman's ex, and AROM - Objective Findings Objective Findings:: AROM increasing with pt voicing decreased c/o pain. - Charges Total Direct Minutes: 60 Total Treatment Time: 60 Procedures billed for this date of service:: CP US EX MT Assessment Patient Education: Education of diagnosis, Body/Joint mechanics, Home Exercise Program, Home Safety, Activity Modification, Education of Plan of Care Patient demonstrates compliance with HEP?: Yes Short Term Goals Goal #1: Pt to follow the protocol for Bicep tenodesis. Goal to be met by: 06/02/16 Progress towards goal: Met Comments: [facility] Goal #2: Pt to be independent with Home exercise program. Goal to be met by: 06/02/16 Progress towards goal: Partially Met Goal #3: Pt pain to decrease to 4/10 Goal to be met by: 06/02/16 Progress towards goal: Partially Met Goal #4: Pt to increase to full PROM in week 1-4 Goal to be met by: 06/02/16 Progress towards goal: Progressing Assisted Goals Goal #1: Pt to be independent with HEP. Goal to be met by: 07/21/16 Progress towards goal: Progressing Goal #2: Pt to have full AROM at 8th week. Goal to be met by: 07/21/16 Progress towards goal: Progressing Goal #3: Pt pain to decrease to 0-1/10 Goal to be met by: 07/21/16 Progress towards goal: Progressing Goal #4: Pt to increase strength to 4+/5 Goal to be met by: 07/21/16 Progress towards goal: Progressing Plan PLAN OF CARE EXPIRES ON:: 07/21/16 ORDER # VISITS AND/OR THROUGH DATE: July 21, 2016 PLAN: Continue Plan of Care Frequency: 3 X week Duration: 4 weeks
--- NOTE | 2016-05-27 15:15 | RS.OTDNOTE ---
Subjective Date of Note: 05/27/16 Visit #: 14 Date of Evaluation: 04/28/16 Payer Source: MEDICARE Date of Onset/Injury/Change in Status: 03/06/16 Surgery Performed?: Yes Date of Procedure: 04/14/16 Treatment Diagnosis: bicep Tenodesis Treatment Side (optional): Left *Precautions: AROM of LEft elbow and shoulder, NO resistance. Prior Level of Function.....Patient was independent with: ADL's, Self Care, Work /Vocation, Caregiving, Ambulation/Mobility, Community Integration/Access History of Condition/Mechanism of Injury: Pt reported he fell over the dog barrier and went to catch himself when his LUE went behind him and it popped really loud and he had to lay in the floor until his got home. Level of Function: Pt requires assistance with putting on his shirt, tying his shoes Functional Limitations: Sleep, Self Care, ADL's, Reaching, Pushing, Pulling, Lifting, Carrying, Community Access/Integration Current Complaints/Gains: Pt states he has been performing B UE aggie system along with codman's to decrease stiffness. States he has not taken lortab x 2 days but did take an advil prior to attending tx this am. Pain Assessment - Pain Description Pain Description: Burning, Tightness, Radiating, Sharp, Throbbing, Aching Pain Location: Left pectoralis muscle, subscapularis muscle and posterior scapula, posterior elbow and tricep. Pain Description: aches, sharp Modalities - Treatment Modality: Ultrasound Parameters/Method Applied: 1.5w/cm2 x 12 mins Treatment Area: anterior shoulder/deltoid muscle - Hot Pack/Cryotherapy Treatment: Cryotherapy Interventions - Exercise/Activities Exercise/Activities/Manual Therapy: PROM of LUE shoulder with pt in supine and sidelying position shoulder flexion/scaption, IR/ER, ABDuction, and elbow flexion/extension (GE/AG). PROM elbow extension to 0*. Manual therapy/trigger point therapy to posterior scapula and along bicep tendon x 20+ mins with pt in sitting and sidelying positon and during shoulder PROM. Wrist AROM along with codman's performed. AROM table-top and supine cane A/AROM performed of sh flexion along with B UE aggie and finger ladder. Codmans ex and AROM/PROM shoulder with pt in prone position with trigger point therapy. Pt also performed 10/ of shoulder flexion/ext with hold/release performed in supine positon. Pt also performed and was ed for HEP of cane ex in supine and sitting position. HOME EXERCISE PROGRAM: Ice pack application, codman's ex, and AROM - Objective Findings Objective Findings:: AROM increasing with pt voicing decreased c/o pain. - Charges Total Direct Minutes: 50 Total Treatment Time: 65 Procedures billed for this date of service:: CP US EX2 Assessment Patient Education: Education of diagnosis, Body/Joint mechanics, Home Exercise Program, Home Safety, Activity Modification, Education of Plan of Care Patient demonstrates compliance with HEP?: Yes Short Term Goals Goal #1: Pt to follow the protocol for Bicep tenodesis. Goal to be met by: 06/02/16 Progress towards goal: Met Goal #2: Pt to be independent with Home exercise program. Goal to be met by: 06/02/16 Progress towards goal: Partially Met Goal #3: Pt pain to decrease to 4/10 Goal to be met by: 06/02/16 Progress towards goal: Partially Met Goal #4: Pt to increase to full PROM in week 1-4 Goal to be met by: 06/02/16 Progress towards goal: Progressing Longterm Goals Goal #1: Pt to be independent with HEP. Goal to be met by: 07/21/16 Progress towards goal: Progressing Goal #2: Pt to have full AROM at 8th week. Goal to be met by: 07/21/16 Progress towards goal: Progressing Goal #3: Pt pain to decrease to 0-1/10 Goal to be met by: 07/21/16 Progress towards goal: Progressing Goal #4: Pt to increase strength to 4+/5 Goal to be met by: 07/21/16 Progress towards goal: Progressing Plan PLAN OF CARE EXPIRES ON:: 07/21/16 ORDER # VISITS AND/OR THROUGH DATE: July 21, 2016 PLAN: Continue Plan of Care Frequency: 3 X week Duration: 4 weeks
--- NOTE | 2016-05-29 09:56 | RS.OTDNOTE ---
Subjective Date of Note: 05/29/16 Visit #: 15 Date of Evaluation: 04/28/16 Payer Source: MEDICARE Date of Onset/Injury/Change in Status: 03/06/16 Surgery Performed?: Yes Date of Procedure: 04/14/16 Treatment Diagnosis: bicep Tenodesis Treatment Side (optional): Left *Precautions: AROM of LEft elbow and shoulder, NO resistance. Prior Level of Function.....Patient was independent with: ADL's, Self Care, Work /Vocation, Caregiving, Ambulation/Mobility, Community Integration/Access History of Condition/Mechanism of Injury: Pt reported he fell over the dog barrier and went to catch himself when his LUE went behind him and it popped really loud and he had to lay in the floor until his got home. Level of Function: Pt requires assistance with putting on his shirt, tying his shoes Functional Limitations: Sleep, Self Care, ADL's, Reaching, Pushing, Pulling, Lifting, Carrying, Community Access/Integration Current Complaints/Gains: Pt states pain increased to 7-8 this am and that he took his first pain pill in days. States that he had utilized biofreeze last night prior to going to bed. States he performed B UE aggie several times. States while up and moving/working, he does not notice the pain. Pain Assessment - Pain Description Pain Description: Burning, Tightness, Radiating, Sharp, Throbbing, Aching Pain Location: Left pectoralis muscle, subscapularis muscle and posterior scapula, posterior elbow and tricep. Pain Description: aches, sharp Current Pain Intensity: 5 Worst Pain Intensity: 7 Modalities - Treatment Modality: Ultrasound Parameters/Method Applied: 1.5w/cm2 x 12 mins Patient Position: Sitting - Hot Pack/Cryotherapy Treatment: Cryotherapy Interventions - Exercise/Activities Exercise/Activities/Manual Therapy: PROM of LUE shoulder with pt in supine and sidelying position shoulder flexion/scaption, IR/ER, ABDuction, and elbow flexion/extension (GE/AG). PROM elbow extension to 0*. Manual therapy/trigger point therapy to posterior scapula and along bicep tendon with pt in sitting and sidelying positon and during shoulder PROM. Wrist AROM along with codman's performed. AROM table-top and supine cane A/AROM performed of sh flexion/abd, ext, and adduction along with B UE aggie and finger ladder. Codmans ex and AROM/PROM shoulder with pt in prone position with trigger point therapy. Pt also performed 10/1 of shoulder flexion/ext and horizonal adduction with hold/ release performed in supine positon. Shelf activity and ball throw/catch also performed. HEP instruction continued. HOME EXERCISE PROGRAM: Ice pack application, codman's ex, and AROM - Other Treatment/Services Treatment Details: Light weight trng to begin next wk - Objective Findings Objective Findings:: AROM shoulder flexion 146* - Charges Total Direct Minutes: 60 Total Treatment Time: 60 Procedures billed for this date of service:: CP US EX2 Assessment Patient Education: Education of diagnosis, Body/Joint mechanics, Home Exercise Program, Home Safety, Activity Modification, Education of Plan of Care Patient demonstrates compliance with HEP?: Yes Short Term Goals Goal #1: Pt to follow the protocol for Bicep tenodesis. Goal to be met by: 06/02/16 Progress towards goal: Met Goal #2: Pt to be independent with Home exercise program. Goal to be met by: 06/02/16 Progress towards goal: Partially Met Comments: Upgrading to light weights next wk Goal #3: Pt pain to decrease to 4/10 Goal to be met by: 06/02/16 Progress towards goal: Partially Met Goal #4: Pt to increase to full PROM in week 1-4 Goal to be met by: 06/02/16 Progress towards goal: Progressing Jail Goals Goal #1: Pt to be independent with HEP. Goal to be met by: 07/21/16 Progress towards goal: Progressing Goal #2: Pt to have full AROM at 8th week. Goal to be met by: 07/21/16 Progress towards goal: Progressing Goal #3: Pt pain to decrease to 0-1/10 Goal to be met by: 07/21/16 Progress towards goal: Progressing Goal #4: Pt to increase strength to 4+/5 Goal to be met by: 07/21/16 Progress towards goal: Progressing Plan PLAN OF CARE EXPIRES ON:: 07/21/16 ORDER # VISITS AND/OR THROUGH DATE: July 21, 2016 Frequency: 3 X week Duration: 4 weeks
== END ==
PROVIDERS: ATTEND Orthopaedic Surgery
DX: S46.012D Strain of muscle(s) and tendon(s) of the rotator cuff of left shoulder, subsequent encounter (principal)

== ENCOUNTER 2016-06-26 08:00 | Outpatient (RCR) ==
--- NOTE | 2016-06-01 14:11 | RS.OTDNOTE ---
Subjective Date of Note: 06/01/16 Visit #: 16 Date of Evaluation: 04/28/16 Payer Source: MEDICARE Date of Onset/Injury/Change in Status: 03/06/16 Surgery Performed?: Yes Treatment Diagnosis: bicep Tenodesis Treatment Side (optional): Left *Precautions: AROM of LEft elbow and shoulder, NO resistance. Prior Level of Function.....Patient was independent with: ADL's, Self Care, Work /Vocation, Caregiving, Ambulation/Mobility, Community Integration/Access History of Condition/Mechanism of Injury: Pt reported he fell over the dog barrier and went to catch himself when his LUE went behind him and it popped really loud and he had to lay in the floor until his got home. Level of Function: Pt requires assistance with putting on his shirt, tying his shoes Functional Limitations: Sleep, Self Care, ADL's, Reaching, Pushing, Pulling, Lifting, Carrying, Community Access/Integration Current Complaints/Gains: Pt states good compliance with HEP over the wknd including B UE aggie system and AROM ex. 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 Pain Description: aches, sharp Modalities - Treatment Modality: Ultrasound Parameters/Method Applied: 1.5w/cm2 x 12 mins Treatment Area: deltoid and posterior shoulder Patient Position: Sitting - Hot Pack/Cryotherapy Treatment: Cryotherapy Interventions - Exercise/Activities Exercise/Activities/Manual Therapy: PROM of LUE shoulder with pt in supine and sidelying position shoulder flexion/scaption, IR/ER, ABDuction, and elbow flexion/extension (GE/AG). AROM elbow extension to 0*. Manual therapy/trigger point therapy to posterior scapula and along bicep tendon with pt in sitting and sidelying positon and during shoulder PROM. Wrist AROM along with codman's performed. AROM table-top and supine cane A/AROM performed of sh flexion/abd, ext, and adduction along with B UE aggie and finger ladder. Codmans ex and AROM/PROM shoulder with pt in prone position with trigger point therapy. Pt also performed 11/29 of shoulder flexion/ext and horizonal adduction with hold/ release performed in supine positon. Shelf activity and ball throw/catch also performed. HEP instruction continued along with next phase of resistive trng including RTC and periscapular strength trng with use of light bands/weights. HOME EXERCISE PROGRAM: Ice pack application, codman's ex, and AROM - Objective Findings Objective Findings:: Pt demo increased AROM - Charges Total Direct Minutes: 50 Total Treatment Time: 60 Procedures billed for this date of service:: CP US EX2 Assessment Patient Education: Education of diagnosis, Body/Joint mechanics, Home Exercise Program, Home Safety, Activity Modification, Education of Plan of Care Patient demonstrates compliance with HEP?: Yes Short Term Goals Goal #1: Pt to follow the protocol for Bicep tenodesis. Goal to be met by: 06/02/16 Progress towards goal: Met Goal #2: Pt to be independent with Home exercise program. Goal to be met by: 06/02/16 Progress towards goal: Partially Met Goal #3: Pt pain to decrease to 4/10 Goal to be met by: 06/02/16 Progress towards goal: Partially Met Goal #4: Pt to increase to full PROM in week 1-4 Goal to be met by: 06/02/16 Progress towards goal: Progressing Custodial Goals Goal #1: Pt to be independent with HEP. Goal to be met by: 07/21/16 Progress towards goal: Progressing Goal #2: Pt to have full AROM at 8th week. Goal to be met by: 07/21/16 Progress towards goal: Progressing Goal #3: Pt pain to decrease to 0-1/10 Goal to be met by: 07/21/16 Progress towards goal: Progressing Goal #4: Pt to increase strength to 4+/5 Goal to be met by: 07/21/16 Progress towards goal: Progressing Plan PLAN OF CARE EXPIRES ON:: 07/21/16 ORDER # VISITS AND/OR THROUGH DATE: July 21, 2016 PLAN: Continue Plan of Care Frequency: 3 X week Duration: 3 weeks
--- NOTE | 2016-06-03 10:43 | RS.OTDNOTE ---
Subjective Date of Note: 06/03/16 Visit #: 17 Date of Evaluation: 04/28/16 Payer Source: MEDICARE Date of Onset/Injury/Change in Status: 03/06/16 Surgery Performed?: Yes Treatment Diagnosis: bicep Tenodesis Treatment Side (optional): Left *Precautions: AROM of LEft elbow and shoulder, NO resistance. Prior Level of Function.....Patient was independent with: ADL's, Self Care, Work /Vocation, Caregiving, Ambulation/Mobility, Community Integration/Access History of Condition/Mechanism of Injury: Pt reported he fell over the dog barrier and went to catch himself when his LUE went behind him and it popped really loud and he had to lay in the floor until his got home. 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 States he took a pain pill this am but only took an alieve last night and went to bed with biofreeze to sleep. States he is "scared" of hurting his UE and places it in his pants pocket to protect it when doing activites. Pain Assessment - Pain Description Pain Description: Dull Pain Location: Left pectoralis muscle, subscapularis muscle and posterior scapula, posterior elbow and tricep. Pain Description: aches, sharp Current Pain Intensity: 5 Worst Pain Intensity: 7-8 Modalities - Treatment Modality: Ultrasound Parameters/Method Applied: 1.5w/cm x 10 mins Treatment Area: deltoid Patient Position: Sitting - Hot Pack/Cryotherapy Treatment: Cryotherapy Interventions - Exercise/Activities Exercise/Activities/Manual Therapy: Phase 3-RESISTIVE RTC series ex ed and performed this date. PROM-AROM performed along with yellow t-band and 1# hand weight in supine, sitting, and standing positon. 2# weighted ball/shelf performed x 10 along with B UE aggie system and finger ladder for sh flexion/ abd. HOME EXERCISE PROGRAM: Ice pack application, codman's ex, and AROM - Objective Findings Objective Findings:: Pt demo increased AROM. HEP including yellow Tband instructions given - Charges Total Direct Minutes: 50 Total Treatment Time: 60 Procedures billed for this date of service:: CP US EX2 Assessment Patient Education: Education of diagnosis, Body/Joint mechanics, Home Exercise Program, Home Safety, Activity Modification, Education of Plan of Care Patient demonstrates compliance with HEP?: Yes Short Term Goals Goal #1: Pt to follow the protocol for Bicep tenodesis. Goal to be met by: 06/02/16 Progress towards goal: Met Goal #2: Pt to be independent with Home exercise program. Goal to be met by: 06/02/16 Progress towards goal: Partially Met Goal #3: Pt pain to decrease to 4/10 Goal to be met by: 06/02/16 Progress towards goal: Partially Met Goal #4: Pt to increase to full PROM in week 1-4 Goal to be met by: 06/02/16 Progress towards goal: Partially Met Custodial Goals Goal #1: Pt to be independent with HEP. Goal to be met by: 07/21/16 Progress towards goal: Progressing Goal #2: Pt to have full AROM at 8th week. Goal to be met by: 07/21/16 Progress towards goal: Progressing Goal #3: Pt pain to decrease to 0-1/10 Goal to be met by: 07/21/16 Progress towards goal: Progressing Goal #4: Pt to increase strength to 4+/5 Goal to be met by: 07/21/16 Progress towards goal: Progressing Plan PLAN OF CARE EXPIRES ON:: 07/21/16 ORDER # VISITS AND/OR THROUGH DATE: July 21, 2016 PLAN: Progress Exercises Frequency: 3 X week Duration: 4 weeks
--- NOTE | 2016-06-05 14:53 | RS.OTDNOTE ---
Subjective Date of Note: 06/05/16 Visit #: 18 Date of Evaluation: 04/28/16 Payer Source: MEDICARE Date of Onset/Injury/Change in Status: 03/06/16 Surgery Performed?: Yes Treatment Diagnosis: bicep Tenodesis Treatment Side (optional): Left *Precautions: AROM of LEft elbow and shoulder, NO resistance. Prior Level of Function.....Patient was independent with: ADL's, Self Care, Work /Vocation, Caregiving, Ambulation/Mobility, Community Integration/Access History of Condition/Mechanism of Injury: Pt reported he fell over the dog barrier and went to catch himself when his LUE went behind him and it popped really loud and he had to lay in the floor until his got home. Level of Function: Pt requires assistance with putting on his shirt, tying his shoes Functional Limitations: Sleep, Self Care, ADL's, Reaching, Pushing, Pulling, Lifting, Carrying, Community Access/Integration Current Complaints/Gains: Pt states increased c/o pain for the past several days. states he took 1/2 a pain pill this am. States he has been completing HEP and applying CP seveal times daily. Pain Assessment - Pain Description Pain Description: Dull Pain Location: Left pectoralis muscle, subscapularis muscle and posterior scapula, posterior elbow and tricep. Pain Description: aches, sharp Modalities - Treatment Modality: Ultrasound Parameters/Method Applied: 1.5w/cm2 x 12 mins Treatment Area: deltoid/shoulder Patient Position: Sitting - Hot Pack/Cryotherapy Treatment: Cryotherapy Interventions - Exercise/Activities Exercise/Activities/Manual Therapy: Phase 3-RESISTIVE RTC series ex ed and performed this date. PROM-AROM performed along with yellow t-band and 1# hand weight in supine, sitting, and standing positon. 2# weighted ball/shelf performed x 10 along with B UE aggie system and finger ladder for sh flexion/ abd. HOME EXERCISE PROGRAM: Ice pack application, codman's ex, and AROM - Objective Findings Objective Findings:: Pt demo increased AROM. HEP including yellow Tband instructions given - Charges Total Direct Minutes: 60 Total Treatment Time: 70 Procedures billed for this date of service:: CP US EX3 Assessment Patient Education: Education of diagnosis, Body/Joint mechanics, Home Exercise Program, Home Safety, Activity Modification, Education of Plan of Care Patient demonstrates compliance with HEP?: Yes Short Term Goals Goal #1: Pt to follow the protocol for Bicep tenodesis. Goal to be met by: 06/02/16 Progress towards goal: Met Goal #2: Pt to be independent with Home exercise program. Goal to be met by: 06/02/16 Progress towards goal: Partially Met Goal #3: Pt pain to decrease to 4/10 Goal to be met by: 06/02/16 Progress towards goal: Partially Met Goal #4: Pt to increase to full PROM in week 1-4 Goal to be met by: 06/02/16 Progress towards goal: Partially Met Fpc Goals Goal #1: Pt to be independent with HEP. Goal to be met by: 07/21/16 Progress towards goal: Progressing Goal #2: Pt to have full AROM at 8th week. Goal to be met by: 07/21/16 Progress towards goal: Progressing Goal #3: Pt pain to decrease to 0-1/10 Goal to be met by: 07/21/16 Progress towards goal: Progressing Goal #4: Pt to increase strength to 4+/5 Goal to be met by: 07/21/16 Progress towards goal: Progressing Plan PLAN OF CARE EXPIRES ON:: 07/21/16 ORDER # VISITS AND/OR THROUGH DATE: July 21, 2016 PLAN: Continue Plan of Care Frequency: 3 X week Duration: 4 weeks
--- NOTE | 2016-06-08 09:07 | RS.OTPN ---
Subjective Date of Note: 06/08/16 Visit #: 20 Date of Evaluation: 04/28/16 Payer Source: MEDICARE Date of Onset/Injury/Change in Status: 03/06/16 Surgery Performed?: Yes Treatment Diagnosis: bicep Tenodesis Treatment Side (optional): Left *Precautions: AROM of LEft elbow and shoulder, NO resistance. Prior Level of Function.....Patient was independent with: ADL's, Self Care, Work /Vocation, Caregiving, Ambulation/Mobility, Community Integration/Access History of Condition/Mechanism of Injury: Pt reported he fell over the dog barrier and went to catch himself when his LUE went behind him and it popped really loud and he had to lay in the floor until his got home. Level of Function: Pt requires assistance with putting on his shirt, tying his shoes Functional Limitations: Sleep, Self Care, ADL's, Reaching, Pushing, Pulling, Lifting, Carrying, Community Access/Integration Current Complaints/Gains: Patient woke up Wednesday morning at 2 am and had to take pain medication. Patient was instructed to cut back on his overhead pulleys to one time a day for 10 minutes until his pain decreases and to put ice pack on his shoulder until it is so cold he can't feel it. Pain Assessment - Pain Description Pain Description: Aching Pain Location: Left pectoralis muscle, subscapularis muscle and posterior scapula, posterior elbow and tricep. Pain Description: aches, sharp Current Pain Intensity: 7 Worst Pain Intensity: 10 Functional Outcome Measures - G Codes & Severity Modifier G Codes: Current CK, Goal CH Source of G Code score: Carrying moving and handling Observation - Observation Inspection: patient having pain in the subscapularis, and posterior scapula tender points. Handedness: Right - Left Shoulder ROM Left Shoulder Flexion: 107 (Active in sitting, 120 Passive) Left Shoulder Abduction: 64 (Active in sitting, 75 Passive) Left Shoulder Internal Rotation: 45 (Active in supine, 52 Passive) Left Shoulder External Rotation: 10 (Active in supine, 30 Passive with pain.) Left Shoulder ROM Limitations: Soft Tissue Tightness, Muscle Weakness, Pain - Left Shoulder Strength Left Shoulder Flexion: 3- Fair- Left Shoulder Abduction: 3- Fair- Left Shoulder Adduction: 3- Fair- Left Shoulder External Rotation: 2+ Poor+ Left Shoulder Internal Rotation: 3- Fair- Elbow ROM: Left WFL's - Left Elbow Strength Left Elbow Extension: 4 Good Left Elbow Flexion: 4 Good Left Forearm Pronation: 4- Good- Left Forearm Supination: 4- Good- Wrist ROM: Bilaterally WFL's Wrist Muscle Strength: Bilaterally WFL's - Left Wrist Strength Left Wrist Extension: 4 Good Left Wrist Flexion: 4 Good Left Wrist Radial Deviation: 4 Good Left Wrist Ulnar Deviation: 4 Good Left Forearm Pronation: 4 Good Left Forearm Supination: 4 Good - Search Strategist Strength Left Search Strategist Strength: 70 Right Search Strategist Strength: 95 Palpation Palpation Findings: Tenderness, Trigger Point, Muscle Guarding Sensation Right Upper Extremity: Intact/Normal Left Upper Extremity: Intact/Normal Modalities - Treatment Modality: Ultrasound Parameters/Method Applied: .4 w/cm2 for 7 minutes to subscapularis muscle. Treatment Area: Left shoulder Interventions - Exercise/Activities Exercise/Activities/Manual Therapy: Patient 20 visit progress not completed by OT. Patient is progressing toward his OT goals. HOME EXERCISE PROGRAM: Ice pack application, codman's ex, and AROM - Objective Findings Objective Findings:: Pt demo increased AROM. HEP including yellow Tband instructions given - Charges Total Direct Minutes: 60 Total Treatment Time: 60 Procedures billed for this date of service:: US, CP,MT, EX Assessment Assessment: Patient complaining of pain. Patient does not realize how much he is actually doing during the day with his LUE. Patient advised to slow down and reduce his exercise. Rehab Potential: Good Problems/Comments: Pain with External and internal rotation. Short Term Goals Goal #1: Pt to follow the protocol for Bicep tenodesis. Goal to be met by: 06/02/16 Progress towards goal: Met Goal #2: Pt to be independent with Home exercise program. 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 Goal to be met by: 07/21/16 Progress towards goal: Progressing Goal #2: Pt to have full AROM at 8th week. Goal to be met by: 07/21/16 Progress towards goal: Progressing Goal #3: Pt pain to decrease to 0-1/10 Goal to be met by: 07/21/16 Progress towards goal: Progressing Goal #4: Pt to increase strength to 4+/5 Goal to be met by: 07/21/16 Progress towards goal: Progressing Plan PLAN OF CARE EXPIRES ON:: 07/21/16 ORDER # VISITS AND/OR THROUGH DATE: July 21, 2016 PLAN: Continue Plan of Care Frequency: 3 X week Duration: 8 weeks
--- NOTE | 2016-06-08 10:46 | RS.OTDNOTE ---
Subjective Date of Note: 06/08/16 Visit #: 19 Date of Evaluation: 04/28/16 Payer Source: MEDICARE Date of Onset/Injury/Change in Status: 03/06/16 Surgery Performed?: Yes Treatment Diagnosis: bicep Tenodesis Treatment Side (optional): Left *Precautions: AROM of LEft elbow and shoulder, NO resistance. Prior Level of Function.....Patient was independent with: ADL's, Self Care, Work /Vocation, Caregiving, Ambulation/Mobility, Community Integration/Access History of Condition/Mechanism of Injury: Pt reported he fell over the dog barrier and went to catch himself when his LUE went behind him and it popped really loud and he had to lay in the floor until his got home. Level of Function: Pt requires assistance with putting on his shirt, tying his shoes Functional Limitations: Sleep, Self Care, ADL's, Reaching, Pushing, Pulling, Lifting, Carrying, Community Access/Integration Current Complaints/Gains: Pt reports increased c/o pain/aching. Reports trouble sleeping the past few days 2* pain at night. Reports overuse of B UE aggie system and low compliance with applying CP for pain axel. Pain Assessment - Pain Description Pain Description: Aching Pain Location: Left pectoralis muscle, subscapularis muscle and posterior scapula, posterior elbow and tricep. Pain Description: aches, sharp Modalities - Treatment Modality: Ultrasound Parameters/Method Applied: 1.5w/cm2 x 7 mins x 2 Patient Position: Sitting - Hot Pack/Cryotherapy Treatment: Cryotherapy Interventions - Exercise/Activities Exercise/Activities/Manual Therapy: Manual therapy/trigger point therapy performed in sitting/sidelying position. ISO ex x 4 directions with hold x 5 secs each. PROM-(A)AROM performed along B UE aggie system for flexion, abd, and extension. HOME EXERCISE PROGRAM: Ice pack application, codman's ex, and AROM - Objective Findings Objective Findings:: Pt demo increased AROM. HEP including yellow Tband instructions given - Charges Total Direct Minutes: 60 Total Treatment Time: 60 Procedures billed for this date of service:: CP US EX MT Assessment Assessment: OTR performed 20th visit assessment. Patient Education: Education of diagnosis, Body/Joint mechanics, Home Exercise Program, Home Safety, Activity Modification, Education of Plan of Care Patient demonstrates compliance with HEP?: Yes Short Term Goals Goal #1: Pt to follow the protocol for Bicep tenodesis. Goal to be met by: 06/02/16 Progress towards goal: Met Goal #2: Pt to be independent with Home exercise program. Goal to be met by: 06/02/16 Progress towards goal: Partially Met Goal #3: Pt pain to decrease to 4/10 Goal to be met by: 06/02/16 Progress towards goal: Partially Met Goal #4: Pt to increase to full PROM in week 1-4 Goal to be met by: 06/02/16 Progress towards goal: Partially Met Renewal Specialist Goals Goal #1: Pt to be independent with HEP. Goal to be met by: 07/21/16 Progress towards goal: Progressing Goal #2: Pt to have full AROM at 8th week. Goal to be met by: 07/21/16 Progress towards goal: Progressing Goal #3: Pt pain to decrease to 0-1/10 Goal to be met by: 07/21/16 Progress towards goal: Progressing Goal #4: Pt to increase strength to 4+/5 Goal to be met by: 07/21/16 Progress towards goal: Progressing Plan PLAN OF CARE EXPIRES ON:: 07/21/16 ORDER # VISITS AND/OR THROUGH DATE: July 21, 2016 PLAN: Progress Exercises Frequency: 3 X week Duration: 4 weeks
--- NOTE | 2016-06-11 09:19 | RS.OTDNOTE ---
Subjective Date of Note: 06/10/16 Visit #: 20 Date of Evaluation: 04/28/16 Payer Source: MEDICARE Date of Onset/Injury/Change in Status: 03/06/16 Surgery Performed?: Yes Treatment Diagnosis: bicep Tenodesis Treatment Side (optional): Left *Precautions: AROM of LEft elbow and shoulder, NO resistance. Prior Level of Function.....Patient was independent with: ADL's, Self Care, Work /Vocation, Caregiving, Ambulation/Mobility, Community Integration/Access History of Condition/Mechanism of Injury: Pt reported he fell over the dog barrier and went to catch himself when his LUE went behind him and it popped really loud and he had to lay in the floor until his got home. Level of Function: Pt requires assistance with putting on his shirt, tying his shoes Functional Limitations: Sleep, Self Care, ADL's, Reaching, Pushing, Pulling, Lifting, Carrying, Community Access/Integration Current Complaints/Gains: Pt states he has not taken any pain medications for 3 days. States pain remains a constant 4 at lowest but does get higher. States he applies a CP prior to going to sleep. Pain Assessment - Pain Description Pain Description: Dull, Throbbing, Aching Pain Location: Left pectoralis muscle, subscapularis muscle and posterior scapula, posterior elbow and tricep. Pain Description: aches, sharp Current Pain Intensity: 6-7 Worst Pain Intensity: 4 Modalities - Treatment Modality: Electrical Stim Unattended Parameters/Method Applied: Hi volt cross current x 20 mins to max peak of 125V/ pt tolerance, no activie contractions. Treatment Area: shoulder/scapula Patient Position: Sitting Comments:: OTR added to POC on visit/OTR reassessment - Hot Pack/Cryotherapy Treatment: Cryotherapy (x 20 mins during Estim and x 10 mins following TE) Interventions - Exercise/Activities Exercise/Activities/Manual Therapy: Manual therapy/trigger point therapy performed in sitting/sidelying position. ISO ex x 4 directions with hold x 5 secs each. PROM-(A)AROM performed along B UE aggie system for flexion, abd, and extension. Pt also positioned in prone position for P-AROM TE. Ball circles and 2# weighted ball/shelf activity performed along with 1# yvrose bar ex in sitting and supine position. RTC TE/shoulder shrugs and retraction along with 1-2# elbow flex/extension. HOME EXERCISE PROGRAM: Ice pack application, codman's ex, and AROM - Objective Findings Objective Findings:: Pt demo increased AROM. HEP including yellow Tband instructions given - Charges Total Direct Minutes: 60 Total Treatment Time: 75 Procedures billed for this date of service:: Estim CP EX2 MT Assessment Patient Education: Education of diagnosis, Body/Joint mechanics, Home Exercise Program, Home Safety, Activity Modification, Education of Plan of Care Patient demonstrates compliance with HEP?: Yes Short Term Goals Goal #1: Pt to follow the protocol for Bicep tenodesis. Goal to be met by: 06/02/16 Progress towards goal: Met Goal #2: Pt to be independent with Home exercise program. 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 Goal to be met by: 07/21/16 Progress towards goal: Progressing Goal #2: Pt to have full AROM at 8th week. Goal to be met by: 07/21/16 Progress towards goal: Progressing Goal #3: Pt pain to decrease to 0-1/10 Goal to be met by: 07/21/16 Progress towards goal: Progressing Goal #4: Pt to increase strength to 4+/5 Goal to be met by: 07/21/16 Progress towards goal: Progressing Plan PLAN OF CARE EXPIRES ON:: 07/21/16 ORDER # VISITS AND/OR THROUGH DATE: July 21, 2016 PLAN: Continue Plan of Care Frequency: 3 X week Duration: 4 weeks
--- NOTE | 2016-06-12 10:51 | RS.OTDNOTE ---
Subjective Date of Note: 06/12/16 Visit #: 21 Date of Evaluation: 04/28/16 Payer Source: MEDICARE Date of Onset/Injury/Change in Status: 03/06/16 Surgery Performed?: Yes Treatment Diagnosis: bicep Tenodesis Treatment Side (optional): Left *Precautions: AROM of LEft elbow and shoulder, NO resistance. Prior Level of Function.....Patient was independent with: ADL's, Self Care, Work /Vocation, Caregiving, Ambulation/Mobility, Community Integration/Access History of Condition/Mechanism of Injury: Pt reported he fell over the dog barrier and went to catch himself when his LUE went behind him and it popped really loud and he had to lay in the floor until his got home. Level of Function: Pt requires assistance with putting on his shirt, tying his shoes Functional Limitations: Sleep, Self Care, ADL's, Reaching, Pushing, Pulling, Lifting, Carrying, Community Access/Integration Current Complaints/Gains: Pt states good compliance with HEP and applying CP. Rates pain 4/10 entering therapy dept and 5/10 following TE. Pain Assessment - Pain Description Pain Description: Dull, Throbbing, Aching Pain Location: Left pectoralis muscle, subscapularis muscle and posterior scapula, posterior elbow and tricep. Pain Description: aches, sharp Current Pain Intensity: 4 Worst Pain Intensity: 5 Modalities - Treatment Modality: Electrical Stim Unattended Parameters/Method Applied: [place] x 30 mins to max peak of 125V this date. Treatment Area: Cross-current/4 pads - Hot Pack/Cryotherapy Treatment: Cryotherapy (CP x 30 mins with estim and following TE x 10+ mins) Interventions - Exercise/Activities Exercise/Activities/Manual Therapy: Manual therapy/trigger point therapy performed in supine sitting/sidelying position. ISO ex x 4 directions with hold x 5 secs each. PROM-(A)AROM performed along B UE aggie system for flexion , abd, and extension. Pt also positioned in prone position for P-AROM TE. Ball circles and 2# weighted ball/shelf activity performed along with 1# yvrose bar ex in sitting and supine position. RTC with red t-band TE/shoulder shrugs and retraction along with 1-2# elbow flex/extension. HOME EXERCISE PROGRAM: Ice pack application, codman's ex, and AROM - Objective Findings Objective Findings:: Pt demo increased AROM. HEP including yellow Tband instructions given - Charges Total Direct Minutes: 65 Total Treatment Time: 75 Procedures billed for this date of service:: CP ESTIM Ex2 MT Assessment Patient Education: Education of diagnosis, Body/Joint mechanics, Home Exercise Program, Home Safety, Activity Modification, Education of Plan of Care Patient demonstrates compliance with HEP?: Yes Short Term Goals Goal #1: Pt to follow the protocol for Bicep tenodesis. Goal to be met by: 06/02/16 Progress towards goal: Met Goal #2: Pt to be independent with Home exercise program. 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 Goal to be met by: 07/21/16 Progress towards goal: Progressing Goal #2: Pt to have full AROM at 8th week. Goal to be met by: 07/21/16 Progress towards goal: Progressing Goal #3: Pt pain to decrease to 0-1/10 Goal to be met by: 07/21/16 Progress towards goal: Progressing Goal #4: Pt to increase strength to 4+/5 Goal to be met by: 07/21/16 Progress towards goal: Progressing Plan PLAN OF CARE EXPIRES ON:: 07/21/16 ORDER # VISITS AND/OR THROUGH DATE: July 21, 2016 PLAN: Continue Plan of Care Frequency: 3 X week Duration: 3 weeks
--- NOTE | 2016-06-15 14:56 | RS.OTDNOTE ---
Subjective Date of Note: 06/15/16 Visit #: 22 Date of Evaluation: 04/28/16 Payer Source: MEDICARE Date of Onset/Injury/Change in Status: 03/06/16 Surgery Performed?: Yes Treatment Diagnosis: bicep Tenodesis Treatment Side (optional): Left *Precautions: AROM of LEft elbow and shoulder, NO resistance. Prior Level of Function.....Patient was independent with: ADL's, Self Care, Work /Vocation, Caregiving, Ambulation/Mobility, Community Integration/Access History of Condition/Mechanism of Injury: Pt reported he fell over the dog barrier and went to catch himself when his LUE went behind him and it popped really loud and he had to lay in the floor until his got home. Level of Function: Pt requires assistance with putting on his shirt, tying his shoes Functional Limitations: Sleep, Self Care, ADL's, Reaching, Pushing, Pulling, Lifting, Carrying, Community Access/Integration Current Complaints/Gains: Pt states good compliance with HEP over the wknd. States he applied CP several times daily and pain remained in moderate range. States motion is increased and demo full AROM of B UE's for comparrison. Pain Assessment - Pain Description Pain Description: Dull, Throbbing, Aching Pain Location: Left pectoralis muscle, subscapularis muscle and posterior scapula, posterior elbow and tricep. Pain Description: aches, sharp Current Pain Intensity: 3-4 Worst Pain Intensity: 4-5 Modalities - Treatment Modality: Electrical Stim Unattended Parameters/Method Applied: Hi-volt to pt tolerance x 20 mins to (L) shoulder/ deltoid muscle. Patient Position: Sitting - Hot Pack/Cryotherapy Treatment: Cryotherapy Interventions - Exercise/Activities Exercise/Activities/Manual Therapy: Manual therapy/trigger point therapy performed in supine sitting/sidelying position. ISO ex x 4 directions with hold x 5 secs each. PROM-(A)AROM performed along B UE aggie system for flexion , abd, and extension. Pt also positioned in prone position for P-AROM TE. Ball circles and 10# weighted ball/shelf activity performed along with 3# yvrose bar ex in sitting and supine position. RTC with red t-band TE/shoulder shrugs and retraction along with 2# elbow flex/extension, push-outs, and (B) UE butterfly's. HOME EXERCISE PROGRAM: Ice pack application, codman's ex, and AROM - Objective Findings Objective Findings:: Pt demo increased AROM. HEP including yellow progressed to red Tband instructions given - Charges Total Direct Minutes: 58 Total Treatment Time: 77 Procedures billed for this date of service:: CP ESTIM MT EX2 Assessment Patient Education: Education of diagnosis, Body/Joint mechanics, Home Exercise Program, Home Safety, Activity Modification, Education of Plan of Care Patient demonstrates compliance with HEP?: Yes Short Term Goals Goal #1: Pt to follow the protocol for Bicep tenodesis. Goal to be met by: 06/02/16 Progress towards goal: Met Goal #2: Pt to be independent with Home exercise program. 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 Goal to be met by: 07/21/16 Progress towards goal: Partially Met Goal #2: Pt to have full AROM at 8th week. Goal to be met by: 07/21/16 Progress towards goal: Partially Met Goal #3: Pt pain to decrease to 0-1/10 Goal to be met by: 07/21/16 Progress towards goal: Progressing Goal #4: Pt to increase strength to 4+/5 Goal to be met by: 07/21/16 Progress towards goal: Partially Met Plan PLAN OF CARE EXPIRES ON:: 07/21/16 ORDER # VISITS AND/OR THROUGH DATE: July 21, 2016 PLAN: Progress Exercises Frequency: 3 X week Duration: 3 weeks
--- NOTE | 2016-06-17 11:49 | RS.OTDNOTE ---
Subjective Date of Note: 06/17/16 Visit #: 23 Date of Evaluation: 04/28/16 Payer Source: MEDICARE Date of Onset/Injury/Change in Status: 03/06/16 Surgery Performed?: Yes Treatment Diagnosis: bicep Tenodesis Treatment Side (optional): Left *Precautions: AROM of LEft elbow and shoulder, NO resistance. Prior Level of Function.....Patient was independent with: ADL's, Self Care, Work /Vocation, Caregiving, Ambulation/Mobility, Community Integration/Access History of Condition/Mechanism of Injury: Pt reported he fell over the dog barrier and went to catch himself when his LUE went behind him and it popped really loud and he had to lay in the floor until his got home. Level of Function: Pt requires assistance with putting on his shirt, tying his shoes Functional Limitations: Sleep, Self Care, ADL's, Reaching, Pushing, Pulling, Lifting, Carrying, Community Access/Integration Current Complaints/Gains: Pt states he has increased time of applying CP and times per day. States "ache" during the night that has incresed trouble with sleeping. States he returns to [facility] in June but wishes he had an appointment sooner. States he has also been utilizing HP at home and likes it better than the ice but that neither the CP or HP has lasting effects. Pain Assessment - Pain Description Pain Description: Dull, Throbbing, Aching Pain Location: Left pectoralis muscle, subscapularis muscle and posterior scapula, posterior elbow and tricep. Pain Description: aches, sharp Current Pain Intensity: 5 Worst Pain Intensity: 5 Modalities - Treatment Modality: Electrical Stim Unattended Parameters/Method Applied: Hi-volt to max 125, cross-current x 20 mins. Treatment Area: shoulder/scapula Patient Position: Sitting - Treatment Modality: Class 4 Laser Parameters/Method Applied: No charge-chronic pain protocol Treatment Area: anterior/posterior shoulder, scapula Patient Position: Sitting - Hot Pack/Cryotherapy Treatment: Cryotherapy (CP x 20 mins) Interventions - Exercise/Activities Exercise/Activities/Manual Therapy: Manual therapy/trigger point therapy performed in supine sitting/sidelying position. ISO ex x 4 directions with hold x 5 secs each. PROM-(A)AROM performed along B UE aggie system for flexion , abd, and extension. Pt also positioned in prone position for P-AROM TE. Ball circles and 10# weighted ball/shelf activity performed along with 3# yvrose bar ex in sitting and supine position. RTC with red t-band TE/shoulder shrugs and retraction along with 2# elbow flex/extension, push-outs, and (B) UE butterfly's. Restorator x 1 mins HOME EXERCISE PROGRAM: Ice pack application, codman's ex, and AROM - Objective Findings Objective Findings:: Pt demo increased AROM. HEP including yellow progressed to red Tband instructions given - Charges Total Direct Minutes: 58 Total Treatment Time: 79 Procedures billed for this date of service:: CP Estim Ex3 Assessment Patient Education: Education of diagnosis, Body/Joint mechanics, Home Exercise Program, Home Safety, Activity Modification, Education of Plan of Care Patient demonstrates compliance with HEP?: Yes Short Term Goals Goal #1: Pt to follow the protocol for Bicep tenodesis. Goal to be met by: 06/02/16 Progress towards goal: Met Goal #2: Pt to be independent with Home exercise program. Goal to be met by: 06/02/16 Progress towards goal: Met Goal #3: Pt pain to decrease to 4/10 Goal to be met by: 06/02/16 Progress towards goal: Partially Met Comments: 5/10 Goal #4: Pt to increase to full PROM in week 1-4 Goal to be met by: 06/02/16 Progress towards goal: Not Met [facility] Goals Goal #1: Pt to be independent with HEP. Goal to be met by: 07/21/16 Progress towards goal: Partially Met Goal #2: Pt to have full AROM at 8th week. Goal to be met by: 07/21/16 Progress towards goal: Partially Met Goal #3: Pt pain to decrease to 0-1/10 Goal to be met by: 07/21/16 Progress towards goal: Progressing Goal #4: Pt to increase strength to 4+/5 Goal to be met by: 07/21/16 Progress towards goal: Partially Met Plan PLAN OF CARE EXPIRES ON:: 07/21/16 ORDER # VISITS AND/OR THROUGH DATE: July 21, 2016 PLAN: Progress Exercises Frequency: 3 X week Duration: 4 weeks
--- NOTE | 2016-06-18 10:37 | RS.OTDNOTE ---
Subjective Date of Note: 06/18/16 Visit #: 24 Date of Evaluation: 04/28/16 Payer Source: MEDICARE Date of Onset/Injury/Change in Status: 03/06/16 Surgery Performed?: Yes Treatment Diagnosis: bicep Tenodesis Treatment Side (optional): Left *Precautions: AROM of LEft elbow and shoulder, NO resistance. Prior Level of Function.....Patient was independent with: ADL's, Self Care, Work /Vocation, Caregiving, Ambulation/Mobility, Community Integration/Access History of Condition/Mechanism of Injury: Pt reported he fell over the dog barrier and went to catch himself when his LUE went behind him and it popped really loud and he had to lay in the floor until his got home. Level of Function: Pt requires assistance with putting on his shirt, tying his shoes Functional Limitations: Sleep, Self Care, ADL's, Reaching, Pushing, Pulling, Lifting, Carrying, Community Access/Integration Current Complaints/Gains: Pt states pain increase but states and demo less facial grimacing during all PROM/TE. States he has not taken pain medicine x 2 or more days. States good compliance with HEP/stretching program along with CP application. 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 Pain Assessment - Pain Description Pain Description: Dull, Throbbing, Aching Pain Location: Left pectoralis muscle, subscapularis muscle and posterior scapula, posterior elbow and tricep. Pain Description: aches, sharp Current Pain Intensity: 4 Worst Pain Intensity: 7 Modalities - Treatment Modality: Electrical Stim Unattended Parameters/Method Applied: Hi-volt Estim, small leads/cross-current to pt tolerance x 20 mins Patient Position: Sitting - Hot Pack/Cryotherapy Treatment: Cryotherapy Interventions - Exercise/Activities Exercise/Activities/Manual Therapy: Manual therapy/trigger point therapy performed in sitting position. ISO ex x 4 directions with hold x 5 secs each. PROM-(A)AROM performed along B UE aggie system for flexion, abd, and extension. Ball circles and 10# weighted ball/shelf activity performed along with 3# yvrose bar ex in sitting position. RTC with red t-band TE/shoulder shrugs and retraction along with 2# elbow flex/extension, push-outs, and (B) UE butterfly's. Restorator x 1 mins. HOME EXERCISE PROGRAM: Ice pack application, codman's ex, and AROM - Objective Findings Objective Findings:: Pt demo increased AROM. HEP including yellow progressed to red Tband instructions given - Charges Total Direct Minutes: 59 Total Treatment Time: 74 Procedures billed for this date of service:: Estim CP Ex3 Assessment Patient Education: Education of diagnosis, Body/Joint mechanics, Home Exercise Program, Home Safety, Activity Modification, Education of Plan of Care Patient demonstrates compliance with HEP?: Yes Short Term Goals Goal #1: Pt to follow the protocol for Bicep tenodesis. Goal to be met by: 06/02/16 Progress towards goal: Met Goal #2: Pt to be independent with Home exercise program. 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 Goal to be met by: 07/21/16 Progress towards goal: Partially Met Goal #2: Pt to have full AROM at 8th week. Goal to be met by: 07/21/16 Progress towards goal: Partially Met Goal #3: Pt pain to decrease to 0-1/10 Goal to be met by: 07/21/16 Progress towards goal: Progressing Goal #4: Pt to increase strength to 4+/5 Goal to be met by: 07/21/16 Progress towards goal: Partially Met Plan PLAN OF CARE EXPIRES ON:: 07/21/16 ORDER # VISITS AND/OR THROUGH DATE: July 21, 2016 PLAN: Progress Exercises Frequency: 3 X week Duration: 4 weeks
--- NOTE | 2016-06-22 10:09 | RS.OTDNOTE ---
Subjective Date of Note: 06/22/16 Visit #: 25 Date of Evaluation: 04/28/16 Payer Source: MEDICARE Date of Onset/Injury/Change in Status: 03/06/16 Surgery Performed?: Yes Treatment Diagnosis: bicep Tenodesis Treatment Side (optional): Left *Precautions: AROM of LEft elbow and shoulder, NO resistance. Prior Level of Function.....Patient was independent with: ADL's, Self Care, Work /Vocation, Caregiving, Ambulation/Mobility, Community Integration/Access History of Condition/Mechanism of Injury: Pt reported he fell over the dog barrier and went to catch himself when his LUE went behind him and it popped really loud and he had to lay in the floor until his got home. Level of Function: Pt requires assistance with putting on his shirt, tying his shoes Functional Limitations: Sleep, Self Care, ADL's, Reaching, Pushing, Pulling, Lifting, Carrying, Community Access/Integration Current Complaints/Gains: Pt states he has taken 0 pain medicine all wknd. States constant "ache" but not as noticiable in daytime while active. Increases during night and interupts sleep. States heat or ice helps but not for long. Pain Assessment - Pain Description Pain Description: Dull, Throbbing, Aching Pain Location: Left pectoralis muscle, subscapularis muscle and posterior scapula, posterior elbow and tricep. Pain Description: aches, sharp Current Pain Intensity: 4 Worst Pain Intensity: 6-7 Other comments regarding pain:: Pt instructed to remain less active with (L) UE for next 2 days. Pt ed on pain/activity level. Modalities - Treatment Modality: Electrical Stim Unattended Parameters/Method Applied: Hi/volt x 20 mins with CP applied during. Max V at 105 this date. Cross-current x 4 small pads. Interventions - Exercise/Activities Exercise/Activities/Manual Therapy: Manual therapy/trigger point therapy performed in sitting position. ISO ex x 4 directions with hold x 5 secs each. PROM-(A)AROM performed along B UE aggie system for flexion, abd, and extension. Ball circles and 2# weighted ball/shelf activity performed along with 1# yvrose bar ex in sitting position. RTC with red t-band TE/shoulder shrugs and retraction along with 2# elbow flex/extension, push-outs, and (B) UE butterfly's. Restorator x 1 mins. HOME EXERCISE PROGRAM: Ice pack application, codman's ex, and AROM - Objective Findings Objective Findings:: Pt demo increased AROM. HEP including yellow progressed to red Tband instructions given - Charges Total Direct Minutes: 46 Total Treatment Time: 70 Procedures billed for this date of service:: CP ESTIM EX2 Assessment Patient Education: Education of diagnosis, Body/Joint mechanics, Home Exercise Program, Home Safety, Activity Modification, Education of Plan of Care Patient demonstrates compliance with HEP?: Yes Short Term Goals Goal #1: Pt to follow the protocol for Bicep tenodesis. Goal to be met by: 06/02/16 Progress towards goal: Met Goal #2: Pt to be independent with Home exercise program. 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 Goal to be met by: 07/21/16 Progress towards goal: Partially Met Goal #2: Pt to have full AROM at 8th week. Goal to be met by: 07/21/16 Progress towards goal: Partially Met Goal #3: Pt pain to decrease to 0-1/10 Goal to be met by: 07/21/16 Progress towards goal: Progressing Goal #4: Pt to increase strength to 4+/5 Goal to be met by: 07/21/16 Progress towards goal: Partially Met Plan PLAN OF CARE EXPIRES ON:: 07/21/16 ORDER # VISITS AND/OR THROUGH DATE: July 21, 2016 PLAN: Continue Plan of Care Frequency: 3 X week Duration: 4 weeks
--- NOTE | 2016-06-24 09:04 | RS.OTDNOTE ---
Subjective Date of Note: 06/24/16 Visit #: 26 Date of Evaluation: 04/28/16 Payer Source: MEDICARE Date of Onset/Injury/Change in Status: 03/06/16 Surgery Performed?: Yes Treatment Diagnosis: bicep Tenodesis Treatment Side (optional): Left *Precautions: AROM of LEft elbow and shoulder, NO resistance. Prior Level of Function.....Patient was independent with: ADL's, Self Care, Work /Vocation, Caregiving, Ambulation/Mobility, Community Integration/Access History of Condition/Mechanism of Injury: Pt reported he fell over the dog barrier and went to catch himself when his LUE went behind him and it popped really loud and he had to lay in the floor until his got home. Level of Function: Pt requires assistance with putting on his shirt, tying his shoes Functional Limitations: Sleep, Self Care, ADL's, Reaching, Pushing, Pulling, Lifting, Carrying, Community Access/Integration Current Complaints/Gains: Pt reports he has taken no pain medicine or applied HP /CP x 24+ hrs. Rates pain 0-4 this date but states pain still reaches 7+ at times. States pain in bicep area and scapula. 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 Pain Assessment - Pain Description Pain Description: Dull, Throbbing, Aching Pain Location: Left pectoralis muscle, subscapularis muscle and posterior scapula, posterior elbow and tricep. Pain Description: aches, sharp Current Pain Intensity: 2 Worst Pain Intensity: 4 Modalities - Treatment Modality: Ultrasound Parameters/Method Applied: 1.5w/cm2 x 10 mins Patient Position: Sitting - Hot Pack/Cryotherapy Treatment: Hot Pack, Cryotherapy Interventions - Exercise/Activities Exercise/Activities/Manual Therapy: Manual therapy/trigger point therapy performed in sitting position. ISO ex x 4 directions with hold x 5 secs each. PROM-(A)AROM performed along B UE aggie system for flexion, abd, and extension. Ball circles and 2# weighted ball/shelf activity performed along with 1# yvrose bar ex in sitting position. RTC with red t-band TE/shoulder shrugs and retraction along with 2# 12, 1, 3, 6 o'clock 11/29. HOME EXERCISE PROGRAM: Ice pack application, codman's ex, and AROM - Objective Findings Objective Findings:: Pt demo increased AROM. HEP including yellow progressed to red Tband instructions given - Charges Total Direct Minutes: 50 Total Treatment Time: 60 Procedures billed for this date of service:: CP US EX2 Assessment Patient Education: Education of diagnosis, Body/Joint mechanics, Home Exercise Program, Home Safety, Activity Modification, Education of Plan of Care Problems/Comments: Pain continues with use of bicep muscle during fx activities Patient demonstrates compliance with HEP?: Yes Short Term Goals Goal #1: Pt to follow the protocol for Bicep tenodesis. Goal to be met by: 06/02/16 Progress towards goal: Met Goal #2: Pt to be independent with Home exercise program. Goal to be met by: 06/02/16 Progress towards goal: Met Goal #3: Pt pain to decrease to 4/10 Goal to be met by: 06/02/16 Progress towards goal: Partially Met Goal #4: Pt to increase to full PROM in week 1-4 Goal to be met by: 06/02/16 Progress towards goal: Not Met [facility] Goals Goal #1: Pt to be independent with HEP. Goal to be met by: 07/21/16 Progress towards goal: Partially Met Goal #2: Pt to have full AROM at 8th week. Goal to be met by: 07/21/16 Progress towards goal: Partially Met Goal #3: Pt pain to decrease to 0-1/10 Goal to be met by: 07/21/16 Progress towards goal: Progressing Goal #4: Pt to increase strength to 4+/5 Goal to be met by: 07/21/16 Progress towards goal: Partially Met Plan PLAN OF CARE EXPIRES ON:: 07/21/16 ORDER # VISITS AND/OR THROUGH DATE: July 21, 2016 PLAN: Continue Plan of Care Frequency: 3 X week Duration: 4 weeks
--- NOTE | 2016-06-26 15:58 | RS.OTDNOTE ---
Subjective Date of Note: 06/26/16 Visit #: 27 Date of Evaluation: 04/28/16 Payer Source: MEDICARE Date of Onset/Injury/Change in Status: 03/06/16 Surgery Performed?: Yes Treatment Diagnosis: bicep Tenodesis Treatment Side (optional): Left *Precautions: AROM of LEft elbow and shoulder, NO resistance. Prior Level of Function.....Patient was independent with: ADL's, Self Care, Work /Vocation, Caregiving, Ambulation/Mobility, Community Integration/Access History of Condition/Mechanism of Injury: Pt reported he fell over the dog barrier and went to catch himself when his LUE went behind him and it popped really loud and he had to lay in the floor until his got home. Level of Function: Pt requires assistance with putting on his shirt, tying his shoes Functional Limitations: Sleep, Self Care, ADL's, Reaching, Pushing, Pulling, Lifting, Carrying, Community Access/Integration Current Complaints/Gains: Pt continues stating c/o pain but also states 0 compliance with applying CP/HP and states he has taken no medicine. Pain Assessment - Pain Description Pain Description: Dull, Throbbing, Aching Pain Location: Left pectoralis muscle, subscapularis muscle and posterior scapula, posterior elbow and tricep. Pain Description: aches, sharp Modalities - Treatment Modality: Ultrasound Parameters/Method Applied: 1.5w/cm2 subscapulas/deltoid - Hot Pack/Cryotherapy Treatment: Hot Pack, Cryotherapy Comments:: HP x 15 mins prior to TE with CP applied x 10 mins following tx Interventions - Exercise/Activities Exercise/Activities/Manual Therapy: Manual therapy/trigger point therapy performed in sitting position. ISO ex x 4 directions with hold x 5 secs each. PROM-(A)AROM performed along B UE aggie system for flexion, abd, and extension. Ball circles and 2# weighted ball/shelf activity performed along with 3# yvrose bar ex in sitting position. RTC with red t-band TE/shoulder shrugs and retraction along with 3# 12, 1, 3, 6 o'clock 11/29. Shoulder stabilization ex performed with blue tubing x 10 of eccentric shoulder flexion and push-outs/protraction. B UE butterfly's performed 06/29. HOME EXERCISE PROGRAM: Ice pack application, codman's ex, and AROM/ stabilization ex's - Objective Findings Objective Findings:: Pt demo increased AROM. HEP including yellow progressed to red Tband instructions given - Charges Total Direct Minutes: 52 Total Treatment Time: 67 Procedures billed for this date of service:: CP EX2 US Assessment Patient Education: Education of diagnosis, Body/Joint mechanics, Home Exercise Program, Home Safety, Activity Modification, Education of Plan of Care Patient demonstrates compliance with HEP?: Yes Short Term Goals Goal #1: Pt to follow the protocol for Bicep tenodesis. Goal to be met by: 06/02/16 Progress towards goal: Met Goal #2: Pt to be independent with Home exercise program. Goal to be met by: 06/02/16 Progress towards goal: Met Goal #3: Pt pain to decrease to 4/10 Goal to be met by: 06/02/16 Progress towards goal: Partially Met Goal #4: Pt to increase to full PROM in week 1-4 Goal to be met by: 06/02/16 Progress towards goal: Not Met Long-Term Goals Goal #1: Pt to be independent with HEP. Goal to be met by: 07/21/16 Progress towards goal: Partially Met Goal #2: Pt to have full AROM at 8th week. Goal to be met by: 07/21/16 Progress towards goal: Partially Met Goal #3: Pt pain to decrease to 0-1/10 Goal to be met by: 07/21/16 Progress towards goal: Progressing Goal #4: Pt to increase strength to 4+/5 Goal to be met by: 07/21/16 Progress towards goal: Partially Met Plan PLAN OF CARE EXPIRES ON:: 07/21/16 ORDER # VISITS AND/OR THROUGH DATE: July 21, 2016 PLAN: Progress Exercises Frequency: 3 X week Duration: 3 weeks (Pt returns to [place], July 06)
== END 2016-06-28 ==
PROVIDERS: ATTEND Orthopaedic Surgery
DX: S46.012D Strain of muscle(s) and tendon(s) of the rotator cuff of left shoulder, subsequent encounter (principal)

== ENCOUNTER 2016-07-02 08:30 | Outpatient (RCR) ==
--- NOTE | 2016-06-29 09:35 | RS.OTPN ---
Subjective Date of Note: 06/29/16 Visit #: 28 Date of Evaluation: 04/28/16 Payer Source: MEDICARE Date of Onset/Injury/Change in Status: 03/06/16 Surgery Performed?: Yes Date of Procedure: 04/14/16 Treatment Diagnosis: bicep Tenodesis Treatment Side (optional): Left *Precautions: AROM of LEft elbow and shoulder, NO resistance. Prior Level of Function.....Patient was independent with: ADL's, Self Care, Work /Vocation, Caregiving, Ambulation/Mobility, Community Integration/Access History of Condition/Mechanism of Injury: Pt reported he fell over the dog barrier and went to catch himself when his LUE went behind him and it popped really loud and he had to lay in the floor until his got home. Level of Function: Pt requires assistance with putting on his shirt, tying his shoes Functional Limitations: Sleep, Self Care, ADL's, Reaching, Pushing, Pulling, Lifting, Carrying, Community Access/Integration Current Complaints/Gains: Patient has pain in the posterior scapula and bicipital tendon repair area of LUE. Pain Assessment - Pain Description Pain Description: Tightness, Sharp, Aching Pain Location: Left pectoralis muscle, subscapularis muscle and posterior scapula, posterior elbow and tricep. Pain Description: aches, sharp Current Pain Intensity: 4/10 Worst Pain Intensity: 6/10 Other comments regarding pain:: Pt has pain with AROM of shoulder flexion Functional Outcome Measures UE Functional Index: 55 (45% impaired) - G Codes & Severity Modifier G Codes: Patient is at CK level with 45% impaired. Patient has made 9% progress since last assessment. Source of G Code score: Carrying, moving and handling objects Observation - Observation Inspection: Patient has edema of left posterior scapula. Handedness: Right Shoulder ROM: Right WFL's Shoulder Muscle Strength: Right WFL's - Left Shoulder ROM Left Shoulder Flexion: 134 (supine, 134 P, 140AAROM) Left Shoulder Abduction: 74 (AROM) Left Shoulder Internal Rotation: 30 Left Shoulder External Rotation: 38 Left Shoulder ROM Limitations: Soft Tissue Tightness, Muscle Weakness, Pain - Left Shoulder Strength Left Shoulder Flexion: 3- Fair- Left Shoulder Extension: 3- Fair- Left Shoulder Abduction: 3- Fair- Left Shoulder Adduction: 3- Fair- Left Shoulder External Rotation: 3- Fair- Left Shoulder Internal Rotation: 3- Fair- - Special Tests Shoulder Empty Can (Supraspinatus) Test: Positive Left Elbow ROM: Bilaterally WFL's Elbow Muscle Strength: Right WFL's - Left Elbow Strength Left Elbow Extension: 4- Good- Left Elbow Flexion: 4- Good- Left Forearm Pronation: 4- Good- Left Forearm Supination: 4- Good- Wrist ROM: Bilaterally WFL's Wrist Muscle Strength: Bilaterally WFL's - Lineman Strength Left Lineman Strength: 71 Right Lineman Strength: 76 Palpation Palpation Findings: Tenderness, Trigger Point, Muscle Guarding Comments:: Patient continues with pain with palpations. Sensation Right Upper Extremity: Intact/Normal Left Upper Extremity: Intact/Normal Modalities - Treatment Modality: Ultrasound Parameters/Method Applied: .4 w/cm2 for 8 minutes to left posterior shoulder to decrease the pain. Treatment Area: Left posterio scapula to decrease pain Patient Position: Sitting - Hot Pack/Cryotherapy Treatment: Cryotherapy Interventions - Exercise/Activities Exercise/Activities/Manual Therapy: Patient was assessed today for the 28th visit. Patient's LUE shoulder AROM ,PROM, AAROM were assessed. US to Left posterior scapula at .4 w/cm2 for 8 minutes to decrease pain and inflammation. CP to Left shoulder for 10 minutes. HOME EXERCISE PROGRAM: Ice pack application, codman's ex, and AROM/ stabilization ex's - Objective Findings Objective Findings:: Pt continues to use heat to make his shoulder feel better even though he has been advised by OT to use cold therapy to decrease inflammation and pain. Pt educated on benefits of not using the heat. Patient was asked to go back to the doctor due to the continued pain levels. Patient reported that he would be going in the next week that it was not killing him. Yet he mentioned he cried in [place] with it. - Charges Total Direct Minutes: 60 Total Treatment Time: 45 Procedures billed for this date of service:: EX x 2, US, CP Assessment Assessment: Pt has pain and is inflammed. Patient's pain is 4/10. Pt ham passer is improving. AROM is slowly improving. Patient Education: Education of diagnosis, Home Exercise Program Rehab Potential: Good Problems/Comments: pain, limited ext. Rot. and int. Rot., shoulder flexion Short Term Goals Goal #1: Pt to follow the protocol for Bicep tenodesis. Goal to be met by: 06/02/16 Progress towards goal: Met Goal #2: Pt to be independent with Home exercise program. Goal to be met by: 06/02/16 Progress towards goal: Met Goal #3: Pt pain to decrease to 4/10 Goal to be met by: 07/20/16 Progress towards goal: Partially Met Goal #4: Pt to increase to full PROM in week 1-4 Goal to be met by: 07/20/16 Progress towards goal: Not Met Intermediate Goals Goal #1: Pt to be independent with HEP. Goal to be met by: 07/21/16 Progress towards goal: Partially Met Goal #2: Pt to have full AROM at 8th week. Goal to be met by: 07/21/16 Progress towards goal: Partially Met Goal #3: Pt pain to decrease to 0-1/10 Goal to be met by: 07/21/16 Progress towards goal: Progressing Goal #4: Pt to increase strength to 4+/5 Goal to be met by: 07/21/16 Progress towards goal: Partially Met Plan PLAN OF CARE EXPIRES ON:: 07/21/16 ORDER # VISITS AND/OR THROUGH DATE: July 21, 2016 PLAN: Continue Plan of Care Frequency: 3 X week Duration: 3 weeks
--- NOTE | 2016-07-01 09:39 | RS.OTDNOTE ---
Subjective Date of Note: 07/01/16 Visit #: 29 Date of Evaluation: 04/28/16 Payer Source: MEDICARE Date of Onset/Injury/Change in Status: 03/06/16 Surgery Performed?: Yes Date of Procedure: 04/14/16 Treatment Diagnosis: bicep Tenodesis Treatment Side (optional): Left *Precautions: AROM of LEft elbow and shoulder, NO resistance. Prior Level of Function.....Patient was independent with: ADL's, Self Care, Work /Vocation, Caregiving, Ambulation/Mobility, Community Integration/Access History of Condition/Mechanism of Injury: Pt reported he fell over the dog barrier and went to catch himself when his LUE went behind him and it popped really loud and he had to lay in the floor until his got home. Level of Function: Pt requires assistance with putting on his shirt, tying his shoes Functional Limitations: Sleep, Self Care, ADL's, Reaching, Pushing, Pulling, Lifting, Carrying, Community Access/Integration Pain Assessment - Pain Description Pain Description: Tightness, Sharp, Aching Pain Location: Left pectoralis muscle, subscapularis muscle and posterior scapula, posterior elbow and tricep. Pain Description: aches, sharp Current Pain Intensity: 4 When he came in 5 during exercises and returned to 4 following u/s and cp Modalities - Treatment Modality: Ultrasound Parameters/Method Applied: .4w/cm2 x 8 min on scapular region at point of pain. - Hot Pack/Cryotherapy Treatment: Cryotherapy (cp to left shoulder) Interventions - Exercise/Activities Exercise/Activities/Manual Therapy: Patient was assessed today for the 29th visit. Patient's LUE shoulder AROM ,PROM, AAROM were assessed. US to Left posterior scapula at .4 w/cm2 for 8 minutes to decrease pain and inflammation. CP to Left shoulder for 10 minutes. HOME EXERCISE PROGRAM: Ice pack application, codman's ex, and AROM/ stabilization ex's - Objective Findings Objective Findings:: Pt continues to use heat to make his shoulder feel better even though he has been advised by OT to use cold therapy to decrease inflammation and pain. Pt educated on benefits of not using the heat. Patient was asked to go back to the doctor due to the continued pain levels. Patient reported that he would be going in the next week that it was not killing him. Yet he mentioned he cried in [place] with it. - Charges Total Direct Minutes: 60 Total Treatment Time: 60 Procedures billed for this date of service:: us, cp,therx2 Assessment Patient Education: Home Exercise Program (reviewed HEP and stress the importance of the hep and using Cold pack) Short Term Goals Goal #1: Pt to follow the protocol for Bicep tenodesis. Goal to be met by: 06/02/16 Progress towards goal: Met Goal #2: Pt to be independent with Home exercise program. Goal to be met by: 06/02/16 Progress towards goal: Met Goal #3: Pt pain to decrease to 4/10 Goal to be met by: 07/20/16 Progress towards goal: Partially Met Goal #4: Pt to increase to full PROM in week 1-4 Goal to be met by: 07/20/16 Progress towards goal: Not Met Reservations Agent Goals Goal #1: Pt to be independent with HEP. Goal to be met by: 07/21/16 Progress towards goal: Partially Met Goal #2: Pt to have full AROM at 8th week. Goal to be met by: 07/21/16 Progress towards goal: Partially Met Goal #3: Pt pain to decrease to 0-1/10 Goal to be met by: 07/21/16 Progress towards goal: Progressing Goal #4: Pt to increase strength to 4+/5 Goal to be met by: 07/21/16 Progress towards goal: Partially Met Plan PLAN OF CARE EXPIRES ON:: 07/21/16 ORDER # VISITS AND/OR THROUGH DATE: July 21, 2016 PLAN: Continue Plan of Care Frequency: 3 X week Duration: 12 weeks
--- NOTE | 2016-07-02 13:18 | RS.OTDNOTE ---
Subjective Date of Note: 07/02/16 Visit #: 30 Date of Evaluation: 04/28/16 Payer Source: MEDICARE Date of Onset/Injury/Change in Status: 03/06/16 Surgery Performed?: Yes Date of Procedure: 04/14/16 Treatment Diagnosis: bicep Tenodesis Treatment Side (optional): Left *Precautions: AROM of LEft elbow and shoulder, NO resistance. Prior Level of Function.....Patient was independent with: ADL's, Self Care, Work /Vocation, Caregiving, Ambulation/Mobility, Community Integration/Access History of Condition/Mechanism of Injury: Pt reported he fell over the dog barrier and went to catch himself when his LUE went behind him and it popped really loud and he had to lay in the floor until his got home. Level of Function: Pt requires assistance with putting on his shirt, tying his shoes Functional Limitations: Sleep, Self Care, ADL's, Reaching, Pushing, Pulling, Lifting, Carrying, Community Access/Integration Pain Assessment - Pain Description Pain Description: Tightness, Sharp, Aching Pain Location: Left pectoralis muscle, subscapularis muscle and posterior scapula, posterior elbow and tricep. Pain Description: aches, sharp Current Pain Intensity: 4or5/10 to begin with 6/10 during back to 4/10 after tx Other comments regarding pain:: Patient says he is going to on wednesday. Modalities - Treatment Parameters/Method Applied: 0.4w/cm2 for 8mins to scapular region for pain - Hot Pack/Cryotherapy Treatment: Cryotherapy (to shoulder) Interventions - Exercise/Activities Exercise/Activities/Manual Therapy: Patient was assessed today for the 30th visit. Patient's LUE shoulder AROM ,PROM, AAROM were assessed. US to Left posterior scapula at .4 w/cm2 for 8 minutes to decrease pain and inflammation. CP to Left shoulder for 10 minutes. HOME EXERCISE PROGRAM: Ice pack application, codman's ex, and AROM/ stabilization ex's - Objective Findings Objective Findings:: Pt continues to use heat to make his shoulder feel better even though he has been advised by OT to use cold therapy to decrease inflammation and pain. Pt educated on benefits of not using the heat. Patient was asked to go back to the doctor due to the continued pain levels. Patient reported that he would be going in the next week that it was not killing him. Yet he mentioned he cried in [place] with it. - Charges Total Direct Minutes: 45 Total Treatment Time: 45 Procedures billed for this date of service:: u/s, cp, ther ex1 Assessment Patient Education: Body/Joint mechanics, Home Exercise Program, Education of Plan of Care Short Term Goals Goal #1: Pt to follow the protocol for Bicep tenodesis. Goal to be met by: 06/02/16 Progress towards goal: Met Goal #2: Pt to be independent with Home exercise program. Goal to be met by: 06/02/16 Progress towards goal: Met Goal #3: Pt pain to decrease to 4/10 Goal to be met by: 07/20/16 Progress towards goal: Partially Met Goal #4: Pt to increase to full PROM in week 1-4 Goal to be met by: 07/20/16 Progress towards goal: Not Met Halfway Goals Goal #1: Pt to be independent with HEP. Goal to be met by: 07/21/16 Progress towards goal: Partially Met Goal #2: Pt to have full AROM at 8th week. Goal to be met by: 07/21/16 Progress towards goal: Partially Met Goal #3: Pt pain to decrease to 0-1/10 Goal to be met by: 07/21/16 Progress towards goal: Progressing Goal #4: Pt to increase strength to 4+/5 Goal to be met by: 07/21/16 Progress towards goal: Partially Met Plan PLAN OF CARE EXPIRES ON:: 07/21/16 ORDER # VISITS AND/OR THROUGH DATE: July 21, 2016 PLAN: Continue Plan of Care Frequency: 3 X week Duration: 12 weeks
--- NOTE | 2016-07-21 08:58 | RS.OTDCSUM ---
Subjective Date of Discharge: 07/02/16 Date of Evaluation: 04/28/16 Number of Visits: 30 Treatment Diagnosis: Right RTC, Bicep tendon repair. Current Level of Function: Goal GUILLE LYMAN at CK level Current Complaints/Gains: Pain with shoulder movements. Possible manipulation to be scheduled. Pain Assessment - Pain Description Pain Description: Tightness, Sharp, Aching Pain Location: Left pectoralis muscle, subscapularis muscle and posterior scapula, posterior elbow and tricep. Pain Description: aches, sharp Functional Outcome Measures UE Functional Index: 40 - G Codes & Severity Modifier G Codes: DC CK Source of G Code score: Carry moving and Handling Observation - Observation Posture: Forward Head Handedness: Right Palpation Palpation Findings: Tenderness, Trigger Point, Muscle Guarding Comments:: Patient continues with pain with palpations. Sensation Right Upper Extremity: Intact/Normal Left Upper Extremity: Intact/Normal Interventions - Exercise/Activities Exercise/Activities/Manual Therapy: Patient was assessed today for the 29th visit. Patient's LUE shoulder AROM ,PROM, AAROM were assessed. US to Left posterior scapula at .4 w/cm2 for 8 minutes to decrease pain and inflammation. CP to Left shoulder for 10 minutes. HOME EXERCISE PROGRAM: Ice pack application, codman's ex, and AROM/ stabilization ex's - Objective Findings Objective Findings:: Pt continues to use heat to make his shoulder feel better even though he has been advised by OT to use cold therapy to decrease inflammation and pain. Pt educated on benefits of not using the heat. Patient was asked to go back to the doctor due to the continued pain levels. Patient reported that he would be going in the next week that it was not killing him. Yet he mentioned he cried in [place] with it. - Charges Total Direct Minutes: 0 Total Treatment Time: 0 Procedures billed for this date of service:: 0 Assessment Assessment: Pt has pain with use of UE. Pt to return to the doctor. Rehab Potential: Good Short Term Goals Goal #1: Pt to follow the protocol for Bicep tenodesis. Goal to be met by: 06/02/16 Progress towards goal: Met Goal #2: Pt to be independent with Home exercise program. Goal to be met by: 06/02/16 Progress towards goal: Met Goal #3: Pt pain to decrease to 4/10 Goal to be met by: 07/20/16 Progress towards goal: Partially Met Goal #4: Pt to increase to full PROM in week 1-4 Goal to be met by: 07/20/16 Progress towards goal: Not Met Usp Goals Goal #1: Pt to be independent with HEP. Goal to be met by: 07/21/16 Progress towards goal: Partially Met Goal #2: Pt to have full AROM at 8th week. Goal to be met by: 07/21/16 Progress towards goal: Partially Met Goal #3: Pt pain to decrease to 0-1/10 Goal to be met by: 07/21/16 Progress towards goal: Progressing Goal #4: Pt to increase strength to 4+/5 Goal to be met by: 07/21/16 Progress towards goal: Partially Met Plan Reason for Discharge:: Lack of Progress Comments: Pt to return to the doctor for possible manipulation.
== END 2016-07-29 ==
PROVIDERS: ATTEND Orthopaedic Surgery
DX: S46.012D Strain of muscle(s) and tendon(s) of the rotator cuff of left shoulder, subsequent encounter (principal)

== ENCOUNTER 2017-03-11 07:31 | Outpatient (CLI) ==
--- NOTE | 2017-03-11 09:47 | CT ---
EXAM: CT ABDOMEN AND PELVIS HISTORY: Lower abdominal pain. TECHNIQUE: CT abdomen and pelvis with intravenous contrast. Oral contrast was administered. Images were reconstructed using 5 mm section thickness. Reformations were prepared. 100 mL Omnipaque. COMPARISON: None FINDINGS: There is mild fatty infiltration of the liver. Spleen is within normal limits. Gallbladder is absen t. There is common bile duct dilatation measuring up to a centimeter with no obvious choledocholithi asis, pancreatic inflammation or pancreatic masses. No intrahepatic biliary dilatation. Portal vein is patent. Normal adrenal glands. Both kidneys demonstrate a few small cortical cystic masses prob ably representing cysts. Moderate atherosclerotic disease. No aneurysmal caliber of the aorta. Moderate sized para esophageal hernia. Tiny appendicolith with no evidence of appendiceal inflammati on. Moderate to severe diverticulosis of the distal descending and sigmoid colon. Urinary bladder is unremarkable. Minimal prostate enlargement. There is no ascites or well-defined focus of inflammat ory infiltration of the abdominal fat. There are small bilateral inguinal hernias more noticeable on the right where the hernia contains a p artial loop of non strangulated small bowel. Bones reveal no acute abnormality. Lung bases demonstr ate emphysematous and fibrotic changes. No pneumoperitoneum. IMPRESSION: 1. Moderate to severe distal colon diverticulosis without diverticulitis. Normal bowel gas pattern. No ascites or free air. 2. Small bilateral inguinal hernias with the right-sided hernia containing a partial loop of non str angulated small bowel. 3. Post cholecystectomy state with common bile duct dilatation. This may in part be related to post op ectasia. Correlate with labs. 4. Mild fatty infiltration of the liver. 5. Moderate sized para esophageal hernia. 6. Small bilateral renal cortical cystic masses, probably cysts. These can be correlated with ultra sound. 7. Moderate atherosclerotic disease.
== END 2017-03-11 07:32 | disposition home or self-care (01) ==
LOC: RAD 07:31
PROVIDERS: ATTEND Family Medicine
DX: R10.9 Unspecified abdominal pain (principal)
CPT/HCPCS: 36415; 82565